=== PATIENT | male | born 1955 | race Caucasian/White ===

== ENCOUNTER → 2019-01-06 21:15 | Outpatient (CLI) | payer OTHER, SELFPAY ==
[2019-01-06 15:12] VITALS: BMI 25.5
[2019-01-06 21:25] LABS: Absolute Lymphocyte Count 2.32 X10^3/ul (0.83-4.51); Absolute Neutrophil Count 4.7 X10^3/uL (2.0-7.7); Basophil# 0.05 X10^3/uL; Basophil% 0.7 % (0-1); Eosinophil# 0.08 X10^3/uL; Eosinophils% 1.1 % (0-5); Hematocrit 43.8 % (40-54); Hemoglobin 14.8 g/dl (13.0-16.5); Lymphocyte # 2.32 X10^3/ul (4.0); Lymphocyte % 30.5 % (19-41); Mean Corp Hgb Conc 33.8 g/gl (32-36); Mean Corpuscular Volume 94.8 fL (80-94); Mean Platelet Vol. 9.4 fl (6.2-12.0); Monocyte# 0.48 X10^3/uL; Monocyte% 6.3 % (0-10); Neutrophil # 4.67 X10^3/uL (2.7-7.7); Neutrophil % 61.3 % (47-70); POSITIVE COUNT NO; POSITIVE DIFFERENTIAL NO; POSITIVE MORPHOLOGY NO; Platelet Count 267 K/mm3 (150-450); RBC Distribution Width CV 14.6 % (11.6-14.6); RBC Distribution Width SD 50.9 fl (35.1-43.9); Red Blood Count 4.62 M/mm3 (4.6-6.2); White Blood Count 7.6 K/mm3 (4.4-11.0)
[2019-01-06 21:54] LABS: ALB/GLOB Ratio 1.4 RATIO (0.9-2.4); AST(SGOT) 30 U/L (15-37); Alanine Aminotransfer ALT/SGPT 29 U/L (16-61); Albumin, Serum 4.2 g/dL (3.2-5.0); Alkaline Phosphatase 68 U/L (45-117); Anion Gap 5 (5-15); BUN 11 mg/dL (7-18); BUN/Creat Ratio 10.7 RATIO (10-20); Calcium,Total 8.8 mg/dL (8.5-10.1); Chloride 104 mmol/L (98-107); Cholesterol 170 mg/dL (200); Creatinine, Serum 1.03 mg/dL (0.70-1.30); EST Glomerular Filtration Rate 78 mL/min (>60); Est Glom Filt Rate - Afr Amer 94 mL/min (>60); Globulin 2.9 g/dL (2.2-4.2); Glucose 119 mg/dL (74-106); High Density Lipoprotein 61 mg/dL; PSA,Total - Annual Screen 0.95 ng/mL (0.00-4.00); Potassium 3.9 mmol/L (3.5-5.1); Protein, Total 7.1 g/dL (6.4-8.2); Sodium Level 139 mmol/L (136-145); Triglycerides 101 mg/dL; Very Low Density Lipoprotein 20 mg/dL (5-40)
== END ==
PROVIDERS: Referring Provider Nurse Practitioner; Visit Provider Nurse Practitioner
DX: I10 Essential (primary) hypertension (principal); E78.5 Hyperlipidemia, unspecified; R35.0 Frequency of micturition
CPT/HCPCS: 80053; 80061; 84153; 85025; G0103

== ENCOUNTER → 2020-08-13 22:05 | Outpatient (CLI) | payer OTHER, SELFPAY ==
[2020-08-13 16:49] VITALS: BMI 26.2
[2020-08-13 22:16] LABS: Absolute Lymphocyte Count 2.44 X10^3/uL (0.83-4.51); Absolute Neutrophil Count 5.3 X10^3/uL (2.0-7.7); Basophil# 0.08 X10^3/uL; Basophil% 0.9 % (0-1); Eosinophil# 0.16 X10^3/uL; Eosinophils% 1.9 % (0-5); Hematocrit 44.9 % (40-54); Hemoglobin 15.3 g/dL (13.0-16.5); Lymphocyte # 2.44 X10^3/ul (4.0); Lymphocyte % 28.3 % (19-41); Mean Corp Hgb Conc 34.1 g/dL (32-36); Mean Corpuscular Hgb 33.1 pg (27.0-32.0); Mean Corpuscular Volume 97.2 fL (80-94); Mean Platelet Vol. 9.9 fl (6.2-12.0); Monocyte# 0.67 X10^3/uL; Monocyte% 7.8 % (0-10); NRBC Flagged by Analyzer 0 % (0-5); Neutrophil # 5.25 X10^3/uL (2.7-7.7); Neutrophil % 60.8 % (47-70); Platelet Count 294 K/mm3 (150-450); RBC Distribution Width CV 13.4 % (11.6-14.6); RBC Distribution Width SD 47.9 fl (35.1-43.9); Red Blood Count 4.62 M/mm3 (4.6-6.2); White Blood Count 8.6 K/mm3 (4.4-11.0)
[2020-08-13 22:34] LABS: ALB/GLOB Ratio 1.4 RATIO (0.9-2.4); AST(SGOT) 23 U/L (15-37); Alanine Aminotransfer ALT/SGPT 39 U/L (16-61); Albumin, Serum 4.2 g/dL (3.2-5.0); Alkaline Phosphatase 91 U/L (45-117); Anion Gap 3 (5-15); BUN 12 mg/dL (7-18); BUN/Creat Ratio 11.4 RATIO (10-20); Chloride 106 mmol/L (98-107); Cholesterol 172 mg/dL (200); Creatinine, Serum 1.05 mg/dL (0.70-1.30); EST Glomerular Filtration Rate 75 mL/min (>60); Est Glom Filt Rate - Afr Amer 91 mL/min (>60); Globulin 2.9 g/dL (2.2-4.2); Glucose 91 mg/dL (74-106); High Density Lipoprotein 62 mg/dL; PSA,Total - Annual Screen 1.25 ng/mL (0.00-4.00); Potassium 4.4 mmol/L (3.5-5.1); Protein, Total 7.1 g/dL (6.4-8.2); Sodium Level 138 mmol/L (136-145); Triglycerides 151 mg/dL; Very Low Density Lipoprotein 30 mg/dL (5-40)
== END ==
PROVIDERS: PCP Nurse Practitioner; Referring Provider Nurse Practitioner; Visit Provider Nurse Practitioner
DX: I10 Essential (primary) hypertension (principal); E78.5 Hyperlipidemia, unspecified; R35.0 Frequency of micturition
CPT/HCPCS: 80053; 80061; 84153; 85025; G0103

== ENCOUNTER → 2021-09-22 21:26 | Outpatient (CLI) | payer MEDICARE, SELFPAY ==
[2021-09-22 22:03] LABS: Absolute Lymphocyte Count 2.66 X10^3/uL (0.83-4.51); Absolute Neutrophil Count 6.1 X10^3/uL (2.0-7.7); Basophil# 0.08 X10^3/uL; Basophil% 0.8 % (0-1); Eosinophil# 0.16 X10^3/uL; Eosinophils% 1.7 % (0-5); Hematocrit 44.5 % (40-54); Hemoglobin 15.4 g/dL (13.0-16.5); Lymphocyte # 2.66 X10^3/ul (0.83-4.51); Lymphocyte % 27.5 % (19-41); Mean Corp Hgb Conc 34.6 g/dL (32-36); Mean Corpuscular Hgb 32.6 pg (27.0-32.0); Mean Corpuscular Volume 94.1 fL (80-94); Mean Platelet Vol. 9.5 fl (6.2-12.0); Monocyte% 7.2 % (0-10); NRBC Flagged by Analyzer 0 % (0-5); Neutrophil # 6.07 X10^3/uL (2.7-7.7); Neutrophil % 62.6 % (47-70); Platelet Count 277 K/mm3 (150-450); RBC Distribution Width CV 13.3 % (11.6-14.6); RBC Distribution Width SD 46.5 fl (35.1-43.9); Red Blood Count 4.73 M/mm3 (4.6-6.2); White Blood Count 9.7 K/mm3 (4.4-11.0)
[2021-09-22 22:07] LABS: ALB/GLOB Ratio 1.4 RATIO (0.9-2.4); AST(SGOT) 19 U/L (15-37); Alanine Aminotransfer ALT/SGPT 36 U/L (16-61); Albumin, Serum 4.2 g/dL (3.2-5.0); Alkaline Phosphatase 82 U/L (45-117); Anion Gap 6 (5-15); BUN 15 mg/dL (7-18); Calcium,Total 9.2 mg/dL (8.5-10.1); Chloride 103 mmol/L (98-107); Cholesterol 169 mg/dL (200); Creatinine, Serum 0.94 mg/dL (0.70-1.30); EST Glomerular Filtration Rate 86 mL/min (>60); Est Glom Filt Rate - Afr Amer 104 mL/min (>60); Glucose 95 mg/dL (74-106); High Density Lipoprotein 54 mg/dL; PSA,Total - Annual Screen 1.48 ng/mL (0.00-4.00); Potassium 4.2 mmol/L (3.5-5.1); Protein, Total 7.2 g/dL (6.4-8.2); Sodium Level 137 mmol/L (136-145); Triglycerides 151 mg/dL; Very Low Density Lipoprotein 30 mg/dL (5-40)
== END ==
PROVIDERS: PCP Nurse Practitioner; Referring Provider Nurse Practitioner; Visit Provider Nurse Practitioner
DX: K21.9 Gastro-esophageal reflux disease without esophagitis (principal); I10 Essential (primary) hypertension; R35.0 Frequency of micturition
CPT/HCPCS: 80053; 80061; 84153; 85025; G0103

== ENCOUNTER → 2022-09-23 | Outpatient (CLI) | payer MEDICARE, SELFPAY ==
[2022-09-23 23:29] LABS: ALB/GLOB Ratio 1.4 RATIO (0.9-2.4); AST(SGOT) 20 U/L (15-37); Alanine Aminotransfer ALT/SGPT 29 U/L (16-61); Albumin, Serum 4.2 g/dL (3.2-5.0); Alkaline Phosphatase 86 U/L (45-117); Anion Gap 3 (5-15); BUN 17 mg/dL (7-18); BUN/Creat Ratio 18.2 RATIO (10-20); Calcium,Total 9.1 mg/dL (8.5-10.1); Chloride 103 mmol/L (98-107); Cholesterol 197 mg/dL (200); Creatinine, Serum 0.93 mg/dL (0.70-1.30); EST Glomerular Filtration Rate 86 mL/min (>60); Est Glom Filt Rate - Afr Amer 104 mL/min (>60); Globulin 2.9 g/dL (2.2-4.2); Glucose 95 mg/dL (74-106); High Density Lipoprotein 65 mg/dL; PSA,Total - Annual Screen 1.27 ng/mL (0.00-4.00); Potassium 4.4 mmol/L (3.5-5.1); Protein, Total 7.1 g/dL (6.4-8.2); Sodium Level 135 mmol/L (136-145); Triglycerides 134 mg/dL; Very Low Density Lipoprotein 27 mg/dL (5-40)
[2022-09-23 23:41] LABS: Absolute Lymphocyte Count 2.66 X10^3/uL (0.83-4.51); Absolute Neutrophil Count 5.2 X10^3/uL (2.0-7.7); Basophil# 0.08 X10^3/uL; Basophil% 0.9 % (0-1); Eosinophil# 0.28 X10^3/uL; Eosinophils% 3.1 % (0-5); Hematocrit 44.1 % (40-54); Hemoglobin 15.9 g/dL (13.0-16.5); Lymphocyte # 2.66 X10^3/ul (0.83-4.51); Lymphocyte % 29.4 % (19-41); Mean Corp Hgb Conc 36.1 g/dL (32-36); Mean Corpuscular Hgb 33.6 pg (27.0-32.0); Mean Corpuscular Volume 93.2 fL (80-94); Mean Platelet Vol. 10.4 fl (6.2-12.0); Monocyte# 0.77 X10^3/uL; Monocyte% 8.5 % (0-10); NRBC Flagged by Analyzer 0 % (0-5); Neutrophil # 5.21 X10^3/uL (2.7-7.7); Neutrophil % 57.7 % (47-70); Platelet Count 251 K/mm3 (150-450); RBC Distribution Width CV 13.3 % (11.6-14.6); RBC Distribution Width SD 46.2 fl (35.1-43.9); Red Blood Count 4.73 M/mm3 (4.6-6.2)
== END | disposition home or self-care (01) ==
PROVIDERS: PCP Nurse Practitioner; Visit Provider Nurse Practitioner
DX: I10 Essential (primary) hypertension (principal); R35.0 Frequency of micturition; K21.9 Gastro-esophageal reflux disease without esophagitis; E78.5 Hyperlipidemia, unspecified; Z12.5 Encounter for screening for malignant neoplasm of prostate
CPT/HCPCS: 80053; 80061; 84153; 85025; G0103

== ENCOUNTER → 2023-09-16 | Outpatient (CLI) | payer MEDICARE, SELFPAY ==
[2023-09-16 20:38] LABS: Absolute Neutrophil Count 5.2 X10^3/uL (2.0-7.7); Hematocrit 44.6 % (40-54); Lymphocyte # 2.66 X10^3/ul (0.83-4.51); Lymphocyte % 29.9 % (19-41); Mean Corp Hgb Conc 33.6 g/dL (32-36); Mean Corpuscular Hgb 32.4 pg (27.0-32.0); Mean Corpuscular Volume 96.3 fL (80-94); Mean Platelet Vol. 10.1 fl (6.2-12.0); Monocyte% 8.1 % (0-10); Neutrophil # 5.23 X10^3/uL (2.7-7.7); Neutrophil % 58.8 % (47-70); Platelet Count 281 K/mm3 (150-450); RBC Distribution Width CV 13.3 % (11.6-14.6); RBC Distribution Width SD 47.8 fl (35.1-43.9); Red Blood Count 4.63 M/mm3 (4.6-6.2); White Blood Count 8.9 K/mm3 (4.4-11.0)
[2023-09-16 20:39] LABS: Absolute Lymphocyte Count 2.66 X10^3/uL (0.83-4.51); Basophil# 0.09 X10^3/uL; Eosinophil# 0.18 X10^3/uL; Monocyte# 0.72 X10^3/uL; NRBC Flagged by Analyzer 0 % (0-5)
[2023-09-16 21:03] LABS: ALB/GLOB Ratio 1.3 RATIO (0.9-2.4); AST(SGOT) 24 U/L (15-37); Alanine Aminotransfer ALT/SGPT 35 U/L (16-61); Alkaline Phosphatase 78 U/L (45-117); Anion Gap 5 (5-15); BUN 15 mg/dL (7-18); BUN/Creat Ratio 13.9 RATIO (10-20); Calcium,Total 9.1 mg/dL (8.5-10.1); Chloride 105 mmol/L (98-107); Cholesterol 185 mg/dL (200); Creatinine, Serum 1.08 mg/dL (0.70-1.30); EST Glomerular Filtration Rate 72 mL/min (>60); Est Glom Filt Rate - Afr Amer 88 mL/min (>60); Globulin 3.1 g/dL (2.2-4.2); Glucose 91 mg/dL (74-106); High Density Lipoprotein 62 mg/dL; PSA,Total- Diagnostic 1.14 ng/mL (0.0-4.0); Potassium 4.5 mmol/L (3.5-5.1); Protein, Total 7.1 g/dL (6.4-8.2); Sodium Level 137 mmol/L (136-145); Triglycerides 156 mg/dL; Very Low Density Lipoprotein 31 mg/dL (5-40)
== END | disposition home or self-care (01) ==
PROVIDERS: PCP Nurse Practitioner; Visit Provider Nurse Practitioner
DX: R35.0 Frequency of micturition (principal); I10 Essential (primary) hypertension; K21.9 Gastro-esophageal reflux disease without esophagitis; E78.5 Hyperlipidemia, unspecified
CPT/HCPCS: 80053; 80061; 84153; 85025

== ENCOUNTER → 2024-09-08 | Outpatient (CLI) | payer MEDICARE, SELFPAY ==
[2024-09-08 21:33] LABS: Absolute Lymphocyte Count 2.75 X10^3/uL (0.83-4.51); Absolute Neutrophil Count 4.7 X10^3/uL (2.0-7.7); Basophil% 1.2 % (0-1); Eosinophil# 0.23 X10^3/uL; Eosinophils% 2.6 % (0-5); Hematocrit 43.2 % (40-54); Lymphocyte # 2.75 X10^3/ul (0.83-4.51); Lymphocyte % 31.7 % (19-41); Mean Corp Hgb Conc 34.7 g/dL (32-36); Mean Corpuscular Hgb 32.7 pg (27.0-32.0); Mean Corpuscular Volume 94.1 fL (80-94); Mean Platelet Vol. 9.3 fl (6.2-12.0); Monocyte# 0.86 X10^3/uL; Monocyte% 9.9 % (0-10); NRBC Flagged by Analyzer 0 % (0-5); Neutrophil # 4.71 X10^3/uL (2.7-7.7); Neutrophil % 54.3 % (47-70); Platelet Count 308 K/mm3 (150-450); RBC Distribution Width CV 13.3 % (11.6-14.6); RBC Distribution Width SD 45.9 fl (35.1-43.9); Red Blood Count 4.59 M/mm3 (4.6-6.2); White Blood Count 8.7 K/mm3 (4.4-11.0)
[2024-09-08 21:56] LABS: ALB/GLOB Ratio 1.5 RATIO (0.9-2.4); AST(SGOT) 15 U/L (15-37); Alanine Aminotransfer ALT/SGPT 31 U/L (16-61); Alkaline Phosphatase 78 U/L (45-117); Anion Gap 2 (5-15); BUN 10 mg/dL (7-18); Calcium,Total 9.3 mg/dL (8.5-10.1); Chloride 103 mmol/L (98-107); Cholesterol 176 mg/dL (200); EST Glomerular Filtration Rate 79 mL/min (>60); Est Glom Filt Rate - Afr Amer 95 mL/min (>60); Globulin 2.6 g/dL (2.2-4.2); Glucose 99 mg/dL (74-106); High Density Lipoprotein 57 mg/dL; PSA,Total - Annual Screen 2.33 ng/mL (0.00-4.00); Potassium 4.7 mmol/L (3.5-5.1); Protein, Total 6.6 g/dL (6.4-8.2); Sodium Level 136 mmol/L (136-145); Triglycerides 247 mg/dL; Very Low Density Lipoprotein 49 mg/dL (5-40)
== END | disposition home or self-care (01) ==
PROVIDERS: PCP Nurse Practitioner; Referring Provider Nurse Practitioner; Visit Provider Nurse Practitioner
DX: R35.0 Frequency of micturition (principal); I10 Essential (primary) hypertension; K21.9 Gastro-esophageal reflux disease without esophagitis; E78.5 Hyperlipidemia, unspecified; Z12.5 Encounter for screening for malignant neoplasm of prostate
CPT/HCPCS: 80053; 80061; 84153; 85025; G0103

== ENCOUNTER → 2025-09-10 | Outpatient (CLI) | payer MEDICARE, SELFPAY ==
--- OUTSIDE RECORDS SUMMARY | 2025-09-10 22:17 | XMS RPT_ITS | CCD ---
Author Organization [facility] Care Team Providers Care Quality Assurance Name Role Phone PROVIDER, UNKNOWN Attending Unavailable PROVIDER, UNKNOWN Referring Unavailable Greer Austin Primary [facility] Unavailable Greer Austin Referring Unavailable Greer Austin Attending Unavailable Greer Austin Primary [facility] Unavailable COBY MARIE Admitting Unavailable ALEX PLEITEZ Consulting Unavailable CAPRICE COLE Attending Unavailable Allergies Allergy Classification Reported Allergen(s) Allergy Type Date of Onset Reaction(s) Facility (2 sources) Angiotensin Converting Enzyme (Jonny) Inhibitors Allergy to substance 01-07-20 cough and tickle [facility] (2 sources) hydroCHLOROthiazide Drug Allergy 01-07-20 [facility] (2 sources) olmesartan Drug Allergy 01-07-20 19 [facility] (1 source) Angiotensin Converting Enzyme (Jonny) Inhibitors Drug allergy (disorder) 01-07-[address] [facility] (1 source) hydroCHLOROthiazide Drug Allergy 01-07-[address] [facility] (1 source) olmesartan Drug Allergy 01-07-[address] [facility] Medications Current Medications Medication Drug Class(es) Dates Sig (Normalized) Sig (Original) famotidine 10 mg oral tablet (2 sources) Histamine-2 Receptor Antagonist Start: 01-06-2019 take 1 tablet by mouth at bedtime Famotidine (Pepcid Ac) 10 mg tablet Active 10 MG PO AT BEDTIME January 05, 2019 11:00pm irbesartan 150 mg oral tablet (15 sources) Angiotensin 2 Receptor Charito Start: 09-16-2023 take 150 mg by mouth once daily Irbesartan Active 150 MG PO DAILY September 16, 2023 12:00am Start: 01-06-2019 End: 09-16-2023 take 75 mg by mouth once daily Irbesartan Discontinued 75 MG PO DAILY September 24, 2020 1:12pm Carlos 27th, 2021 5:26pm Completed/Discontinued Medications Medication Drug Class(es) Dates Sig (Normalized) Sig (Original) cefuroxime 500 mg oral tablet (2 sources) Cephalosporin Antibacterial Start: 03-27-2019 End: 06-28-2019 take 500 mg by mouth twice daily Cefuroxime Axetil Discontinued 500 MG PO TWICE A DAY March 26, 2019 11:00pm June 28, 2019 2:04pm losartan potassium 50 mg oral tablet (2 sources) Angiotensin 2 Receptor Charito Start: 01-06-2019 End: 06-28-2019 take 50 mg by mouth once daily Losartan Discontinued 50 MG PO DAILY January 05, 2019 11:00pm June 28, 2019 2:04pm sildenafil 20 mg oral tablet (2 sources) Phosphodiesterase 5 Inhibitor Start: 06-28-2019 End: 08-13-2020 Sildenafil (Pulm.Hypertensio n) Discontinued 20 MG PO ONCE 30 June 27, 2019 11:00pm August 13, 2020 4:54pm administer doses at least 4-6 hours apart Problems Problem Classification Problem Date Documented Date Episodic/Chronic Cardiac dysrhythmias (2 sources) Tachycardia, unspecified; Translations: [Tachycardia, unspecified] Onset: 12-01-2018 Episodic Disorders of lipid metabolism (2 sources) Hyperlipidemia; Translations: [Hyperlipidemia, unspecified] 01-07-2019 Chronic Disorders of teeth and jaw (1 source) Other specified disorders of teeth and supporting structures; Translations: [Odontalgia] Onset: 03-16-2025 Episodic Esophageal disorders (2 sources) Gastroesophageal reflux disease; Translations: [Gastro-esophageal reflux disease without esophagitis] 08-13-2020 Chronic Essential hypertension (4 sources) Essential (primary) hypertension; Translations: [Hypertensive disorder] Onset: 12-01-2018 08-13-2020 Chronic Genitourinary symptoms and ill-defined conditions (3 sources) Increased frequency of urination; Translations: [Frequency of micturition] Onset: 10-12-2024 09-22-2021 Episodic Immunizations and screening for infectious disease (2 sources) Needs influenza immunization; Translations: [Encounter for immunization] 06-28-2019 Episodic Infective arthritis and osteomyelitis (except that caused by tuberculosis or sexually transmitted disease) (1 source) Other acute osteomyelitis, unspecified site; Translations: [Acute osteomyelitis (HCC)] Onset: 03-16-2025 Chronic Influenza (2 sources) Influenza due to unidentified influenza virus with other respiratory manifestations; Translations: [Flu due to unidentified influenza virus w oth resp manifest] Onset: 12-01-2018 Episodic Other aftercare (2 sources) 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; Translations: [residential (current) use of aspirin] Onset: 12-01-2018 Episodic Other male genital disorders (2 sources) Male erectile dysfunction, unspecified; Translations: [Erectile dysfunction] 06-28-2019 Chronic Other upper respiratory infections (2 sources) Maxillary sinusitis; Translations: [Chronic maxillary sinusitis] 03-27-2019 Chronic Residual codes; unclassified (2 sources) Acquired absence of other specified parts of digestive tract; Translations: [Acquired absence of other specified parts of digestive tract] Onset: 12-01-2018 Episodic Substance-related disorders (3 sources) Nicotine dependence, unspecified, uncomplicated; Translations: [Nicotine dependence, unspecified, uncomplicated] Onset: 12-01-2018 Chronic Syncope (2 sources) Syncope and collapse; Translations: [Syncope and collapse] Onset: 12-01-2018 Episodic Results Test Name Value Interpretation Reference Range Facility CBC panel Auto (Bld)on 03-19 Erythrocyte distribution width (RBC) [Ratio] 13.2 % Normal 11.5-15.0 [facility] Comment on above: Order Comment: Speci men Type: BLOOD SPECIMEN Ordering Facility: [facility] [place] Address: [address] [place] [address] Performed By: #### 5 7021-8 #### [facility] CLIA [id number] [address] [place] Hematocrit (Bld) [Volume fraction] 38.1 % Low 39.0-51.0 [facility] Comment on above: Order Comment: Speci men Type: BLOOD SPECIMEN Ordering Facility: [facility] [place] Address: [address] [place] [address] Performed By: #### 5 7021-8 #### [facility] CLIA [id number] [address] [place] Hemoglobin (Bld) [Mass/Vol] 13.1 g/dL Normal 13.0-17.0 [facility] Comment on above: Order Comment: Speci men Type: BLOOD SPECIMEN Ordering Facility: [facility] [place] Address: [address] [place] [address] Performed By: #### 5 7021-8 #### [facility] CLIA [id number] [address] MCH (RBC) [Entitic mass] 32.3 pg Normal 26.0-34.0 [facility] Comment on above: Order Comment: Speci men Type: BLOOD SPECIMEN Ordering Facility: [facility] [place] Address: [address] [place] [address] Performed By: #### 5 7021-8 #### [facility] CLIA [id number] [address] [place] MCHC (RBC) [Mass/Vol] 34.4 g/dL Normal 30.5-36.0 [facility] Comment on above: Order Comment: Speci men Type: BLOOD SPECIMEN Ordering Facility: [facility] [place] Address: [address] [place] [address] Performed By: #### 5 7021-8 #### [facility] CLIA [id number] [address] MCV (RBC) [Entitic vol] 93.8 fL Normal 80.0-100.0 M [facility] Comment on above: Order Comment: Speci men Type: BLOOD SPECIMEN Ordering Facility: [facility] [place] Address: [address] [place] [address] Performed By: #### 5 7021-8 #### [facility] CLIA [id number] [address] [place] Nucleated RBC (Bld) [#/Vol] 10*3/uL Normal <0.01 [facility] Comment on above: Order Comment: Speci men Type: BLOOD SPECIMEN Ordering Facility: [facility] [place] Address: [address] [place] [address] Performed By: #### 5 7021-8 #### [facility] CLIA [id number] [address] [place] Platelet mean volume (Bld) [Entitic vol] 8.5 fL Low 9.0-12.7 [facility] Comment on above: Order Comment: Speci men Type: BLOOD SPECIMEN Ordering Facility: [facility] [place] Address: [address] [place] [address] Performed By: #### 5 7021-8 #### [facility] CLIA [id number] [address] Platelets (Bld) [#/Vol] 326 10*3/uL Normal 150-400 [facility] Comment on above: Order Comment: Speci men Type: BLOOD SPECIMEN Ordering Facility: [facility] [place] Address: [address] [place] [address] Performed By: #### 5 7021-8 #### [facility] CLIA [id number] [address] [place] RBC (Bld) [#/Vol] 4.06 10*6/uL Low 4.20-6.00 [facility] Comment on above: Order Comment: Speci men Type: BLOOD SPECIMEN Ordering Facility: [facility] [place] Address: [address] [place] [address] Performed By: #### 5 7021-8 #### [facility] CLIA [id number] [address] WBC (Bld) [#/Vol] 6.66 10*3/uL Normal 3.70-11.00 [facility] Comment on above: Order Comment: Speci men Type: BLOOD SPECIMEN Ordering Facility: [facility] [place] Address: [address] [place] [address] Performed By: #### 5 7021-8 #### [facility] CLIA [id number] [address] CNDSon 03-19-2025 CNDS HNO ID: [id number] Author: CAPRICE COLE DO Service: Hospital Medicine Author Type: Physician Type: Discharge Summary Filed: 03/25/2025 22:57 Note Text: DISCHARGE SUMMARY PATIENT NAME: Dionisio Orellana ADMISSION DATE: 03/16/2025 DISCHARGE DATE: 03/19/2025 ATTENDING PHYSICIAN: No att. providers found Code Status: Prior Highest Readmission Risk Score: 12 The 30 day readmissions risk score is derived from an internally validated risk model which evaluates patient level characteristics, utilization history, medication orders and lab results up until the day of discharge. Patients with a score of 39 or above are considered highest risk for readmission. Specific patient level drivers will be listed at the bottom of the summary. CONSULTING TEAMS DURING HOSPITALIZATION: Infectious Disease: Dr. Alex Pleitez REASON FOR HOSPITALIZATION: acute jaw osteomyelitis FINAL DIAGNOSIS: Active Hospital Problems Diagnosis POA Osteomyelitis, jaw acute Unknown Nicotine use disorder Unknown Hyponatremia Unknown Acute osteomyelitis of jaw Yes Hypertension Unknown Nicotine use Unknown Resolved Hospital Problems No resolved problems to display. OPERATIONS DURING HOSPITALIZATION: None PROCEDURES DURING HOSPITALIZATION: Access Placement: PICC Discharge Instructions: -Infectious diseases recommending Unasyn IV 3 g every 6 hours until April 27, 2025. -Also noted to have low sodium levels. -You are recommended fluid restriction of 1500 mL/day. -Repeat BMP in 1 week which can be ordered by your family doctor to check your sodium levels. -If your sodium levels remain low then your family doctor can refer you to a shoe lining fitter outpatient and order outpatient CT chest with smoking history for work up for hyponatremia -You had abnormal TSH level however free T4 was within normal limits. -Recheck Thyroid function test in one 4-6 weeks You had a left upper extremity swelling and left upper extremity ultrasound was done which showed negative study for DVT in the left upper extremity, positive study for superficial thrombophlebitis in the distal left basilic vein. -Use warm compresses for superficial thrombophlebitis for left upper extremity. -If your swelling does not get improved then contact your family doctor to have repeat left upper extremity ultrasound done as an outpatient. -Follow up blood culture results with your family doctor in 3-4 days of discharge -Need outpatient follow up with Pulmonary for pulmonary function test with history of smoking in 1-2 weeks -Follow-up with your family doctor within 1 week of discharge. -Follow-up with your oral surgeon within 1 week of discharge. -Follow-up with Dr. Alex Pleitez infectious disease within 1 week of discharge. -If you have any worsening or life-threatening symptoms then go to the nearest emergency room for further evaluation. HOSPITAL COURSE: Dionisio Orellana is a 69 year old male presented with past medical history of HTN presented with dental pain and was seen by a dentist in January and put on antibiotics, 7 day course of amoxicillin. He was then seen by an Maxillofacial Surgery on 02/26/25 and had to remove portion of the bone. His path report came back for acute osteomyelitis and he was referred to outpatient infectious disease. He states he cannot get until next week and he has been having more severe pain and tenderness along the jawline, R-sided. So he came to the emergency room for eval and treatment. ED spoke with the ID they recommended Zosyn and vancomycin and a PICC line placement for long-term antibiotics also the ED staff spoke with dentistry no need for any surgeries at this point he can follow-up as an outpatient. CT of facial bone showed Broad linear lucency along the oral surface of the body and parasymphyseal mandible on the right with areas of cortical break along the anterior and posterior margins, which may reflect sequelae of chronic infectious/inflammato ry process. Asymmetric ill-defined induration/obscuratio n of the adjacent soft tissue planes extending along the inferior margin of the mandible into the submental region. No discrete superimposed sizable subperiosteal abscess or organized collection. Admitted for, Osteomyelitis, jaw acute -CRP: 0.4. Sed rate: in process. Blood cultures: in process. Lactate:0.7. -blood cultures No growth 5 days -PICC line placed on March 19, 2025. -Infectious diseases recommending Unasyn IV 3 g every 6 hours until April 27, 2025. -Follow-up with your oral surgeon within 1 week of discharge. -Follow-up with Dr. Alex Pleitez infectious disease within 1 week of discharge. -Called Dr. Talley twice on 03/19/25 however, did not answer her phone -discussed with his outpatient oral surgeon Dr. Talley on 03/20/25 and hospital course update given. Patient has OP appointment with Dr. Talley on April 04. Hyponatremia -131 -IVF x 1 day -had abnormal TSH level how (more content not included)... Normal [facility] CONSULT PROGon 03-19-2025 CONSULT PROG HNO ID: [id number] Author: JAISON BUSBY [facility] Service: Pharmacy Author Type: Pharmacist Type: Consult Progress Note Filed: 03/19/2025 10:12 Note Text: PHARMACY VANCOMYCIN DOSING NOTE Patient Name: Dionisio Orellana Admission Date: 03/16/2025 Date of Consult: 03/19/2025 Time of Consult: 10:11 AM RECOMMENDATIONS/PLAN: Pharmacy consulted for vancomycin dosing for Dionisio Orellana, a 69 year old male. Vancomycin therapy has been discontinued. Vancomycin level(s) have been discontinued: Yes. The pharmacy vancomycin dosing service will sign off. Thank you for allowing us to participate in this patient's care. Please contact pharmacy if there are questions. Jaison Busby [facility] CONSULT PROG HNO ID: [id number] Author: ALEX PLEITEZ MD Service: Infectious Disease Author Type: Physician Type: Consult Progress Note Filed: 03/20/2025 20:52 Note Text: INFECTIOUS DISEASE PROGRESS NOTE Patient Name: Dionisio Orellana INTERVAL HISTORY: No fevers over the weekend. No new complaints. BCx NGTD Wants to be discharged Patient Active Hospital Problem List: Osteomyelitis, jaw acute Date Noted: 03/16/2025 Hyponatremia Date Noted: 03/16/2025 Acute osteomyelitis of jaw Date Noted: 03/16/2025 Hypertension Date Noted: 03/16/2025 Nicotine use Date Noted: 03/16/2025 Nicotine use disorder Date Noted: 03/17/2025 ASSESSMENT: Osteomyelitis, jaw acute Hyponatremia Hypertension Nicotine use PLAN: Obtain any OP cultures available Continue unasyn Stop vancomycin BCx x 2 Biopsy path from oral surgeon rev and positive for abscess. Discussed w Dr Talley, no cultures available to follow Obtain PICC CoPAT on chart. >30 min NUNO Complex antimicrobial therapy counseling and treatment. Rationale for switching antibiotics discussed. Education provided regarding long-term antimicrobial therapy as well as side effects. Discussed sensitivities with microbiology department and antimicrobial stewardship pharmacist that will influence antimicrobial therapy and the success of treatment for this infection. I have reviewed and interpreted all lab test imaging studies and documentations from other healthcare providers I am monitoring antibiotics for side effects and toxicity MEDICATIONS: reviewed. Current Facility-Administered Medications Medication Dose Route Frequency NaCl 0.9% iv flush bag 20 mL INTRAVENOUS PRN docusate sodium 100 mg cap(s) (COLACE) 100 mg ORAL BID PRN acetaminophen 650 mg tab(s) (TYLENOL) 650 mg ORAL q 6 H PRN morphine 2 mg injection 2 mg INTRAVENOUS q 4 H PRN oxyCODONE-acetaminoph en 5-325 mg 2 tablet (PERCOCET) 2 tablet ORAL q 6 H PRN valsartan 80 mg tab(s) (DIOVAN) 80 mg ORAL DAILY lidocaine (PF) 10 mg/mL (1 %) 10-100 mg injection (XYLOCAINE) 1-10 mL INTRADERMAL DIRECTED PRN nicotine 21 mg/24 hr 1 patch (NICODERM) 1 patch TRANSDERMAL DAILY And nicotine -- REMOVE patch OTHER DAILY And nicotine - verify patch OTHER q 8 H lactobacillus rhamnosus 10 billion cell (CULTURELLE) capsule 1 capsule ORAL DAILY ampicillin-sulbactam iv piggyback 3 g in NaCl 0.9% 100 mL Vial-Bag (UNASYN) 3 g INTRAVENOUS q 6 H lidocaine (PF) 10 mg/mL (1 %) 10-100 mg injection (XYLOCAINE) 1-10 mL INTRADERMAL DIRECTED PRN calcium carbonate 500 mg chewable tab(s) (TUMS) 500 mg ORAL TID PRN PHYSICAL EXAM: Vital signs: BP 152/89 Pulse 66 Temp 36.7 ?C (98.1 ?F) (Oral) Resp 18 Ht 177.8 cm (5' 10") Wt 81.7 kg (180 lb 0.1 oz) SpO2 99% BMI 25.83 kg/m? Temp (24hrs), Av.7 ?C (98.1 ?F), Min:36.5 ?C (97.7 ?F), Max:36.8 ?C (98.2 ?F) General: alert, oriented, NAD Lungs: bilaterally clear to auscultation Heart: regular rate and rhythm Abdomen: soft, non tender, non distended, BS+ Extremities: no edema No rashes No joint inflammation Neck supple Lines ok No CVAT Lines, Drains, and Airways Line Duration Peripheral 03/18/25 1625 [facility] Left Forearm 20 Gauge <1 day Labs: Recent Labs 03/19/25 0537 03/18/25 1300 03/18/25 0530 03/17/25 0526 03/16/25 1402 03/16/25 1139 WBC 6.66 -- 6.27 7.85 -- 8.37 HB 13.1 -- 12.4* 12.9* -- 14.0 PLT 326 -- 294 294 -- 310 NA 131* -- 134* 131* -- 130* K 4.7 -- 4.3 4.1 -- 4.7 CO2 24 -- 26 23 -- 23 BUN 12 -- 12 9 -- 14 CREAT 0.77 -- 0.89 0.86 -- 0.75 AST 19 -- 15 -- -- 18 ALT 21 -- 16 -- -- 19 TBILI 0.2 -- 0.2 -- -- 0.3 ALKPHOS 94 -- 69 -- -- 81 WSR -- -- -- -- -- 15 CRP -- -- -- -- -- 0.4 LACT -- -- -- -- 0.7 -- VANCORA -- 11.4 -- -- -- -- Microbiology data: reviewed Imaging data: reviewed Alex Pleitez MD Pager: Date of service: 03/19/2025 Time of service: 10:09 AM This note is not final until Authenticated by responsible provider. Normal [facility] Comprehensive metabolic 2000 panelon 03-19-2025 Albumin [Mass/Vol] 4.3 g/dL Normal 3.9-4.9 [facility] Comment on above: Order Comment: Speci men Type: BLOOD SPECIMEN Ordering Facility: [facility] [place] Address: [address] [place] [address] Performed By: #### 2 4323-8, 6-3 #### [facility] CLIA [id number] [address] STATES OF [facility] ALP [Catalytic activity/Vol] 94 U/L Normal 38-113 [facility] Comment on above: Order Comment: Speci men Type: BLOOD SPECIMEN Ordering Facility: [facility] [place] Address: [address] [place] [address] Performed By: #### 2 4323-8, 6-3 #### [facility] CLIA [id number] [address] [place] ALT [Catalytic activity/Vol] 21 U/L Normal 10-54 [facility] Comment on above: Order Comment: Speci men Type: BLOOD SPECIMEN Ordering Facility: [facility] [place] Address: [address] [place] [address] Performed By: #### 2 4323-8, 6-3 #### [facility] CLIA [id number] [address] [place] [address] [place] Anion gap [Moles/Vol] 9 mmol/L Normal 8-15 [facility] Comment on above: Order Comment: Speci men Type: BLOOD SPECIMEN Ordering Facility: [facility] [place] Address: [address] [place] [address] Performed By: #### 2 4323-8, 6-3 #### [facility] CLIA [id number] [address] [place] [address] [place] AST [Catalytic activity/Vol] 19 U/L Normal 14-40 [facility] Comment on above: Order Comment: Speci men Type: BLOOD SPECIMEN Ordering Facility: [facility] [place] Address: [address] [place] [address] Performed By: #### 2 4323-8, 3015-3 #### [facility] CLIA [id number] [address] [place] [address] [place] Bilirubin [Mass/Vol] 0.2 mg/dL Normal 0.2-1.3 [facility] Comment on above: Order Comment: Speci men Type: BLOOD SPECIMEN Ordering Facility: [facility] [place] Address: [address] [place] [address] Performed By: #### 2 4323-8, 6-3 #### [facility] CLIA [id number] [address] [place] Calcium [Mass/Vol] 9.2 mg/dL Normal 8.5-10.2 [facility] Comment on above: Order Comment: Speci men Type: BLOOD SPECIMEN Ordering Facility: [facility] [place] Address: [address] [place] [address] Performed By: #### 2 4323-8, 3016-3 #### [facility] CLIA [id number] [address] [place] [address] [place] Chloride [Moles/Vol] 98 mmol/L Normal 98-107 [facility] Comment on above: Order Comment: Speci men Type: BLOOD SPECIMEN Ordering Facility: [facility] [place] Address: [address] [place] [address] Performed By: #### 2 4323-8, 3016-3 #### [facility] CLIA [id number] [address] [place] [address] [place] CO2 [Moles/Vol] 24 mmol/L Normal 22-30 [facility] Comment on above: Order Comment: Maira chacon Type: BLOOD SPECIMEN Ordering Facility: [facility] [place] Address: [address] [place] [address] Performed By: #### 2 4323-8, 3016-3 #### [facility] CLIA [id number] [address] [place] Creatinine [Mass/Vol] 0.77 mg/dL Normal 0.73-1.22 [facility] Comment on above: Order Comment: Maira chacon Type: BLOOD SPECIMEN Ordering Facility: [facility] [place] Address: [address] [place] [address] Performed By: #### 2 4323-8, 3016-3 #### [facility] CLIA [id number] [address] Creatinine and Glomerular filtration rate.predicted panel (S/P/Bld) 97 mL/min/1.73m??? Normal >=60 [facility] Comment on above: Order Comment: Maira chacon Type: BLOOD SPECIMEN Ordering Facility: [facility] [place] Address: [address] [place] [address] Result Comment: Amy mated Glomerular Filtration Rate (eGFR) is calculated using the 2020 CKD-EPI creatinine equation. This equation utilizes serum creatinine, sex, and age as parameters. The creatinine assay has traceable calibration to isotope dilution-mass spectrometry. Refer to KDIGO guidelines for clinical interpretation. In patients with unstable renal function, e.g. those with acute kidney injury, the eGFR may not accurately reflect actual GFR. Performed By: #### 2 4323-8, 3016-3 #### [facility] CLIA [id number] [address] STATES OF [facility] Glucose [Mass/Vol] 84 mg/dL Normal 74-99 [facility] Comment on above: Order Comment: Maira chacon Type: BLOOD SPECIMEN Ordering Facility: [facility] [place] Address: [address] [place] [address] Result Comment: The [place] Diabetes Association (ADA) provides guidance for cutoff values for fasting glucose and random glucose. The ADA defines fasting as no caloric intake for at least 8 hours. Fasting plasma glucose results between 100 to 125 mg/dL indicate increased risk for diabetes (prediabetes). Fasting plasma glucose results greater than or equal to 126 mg/dL meet the criteria for diagnosis of diabetes. In the absence of unequivocal hyperglycemia, results should be confirmed by repeat testing. In a patient with classic symptoms of hyperglycemia or hyperglycemic crisis, random plasma glucose results greater than or equal to 200 mg/dL meet the criteria for diagnosis of diabetes. Reference: Standards of Medical Care in Diabetes 2016, [place] [employer]. Diabetes Care. 2016.39(Suppl 1). Performed By: #### 2 4323-8, 6-3 #### [facility] CLIA [id number] [address] [place] [address] [place] Potassium [Moles/Vol] 4.7 mmol/L Normal 3.7-5.1 [facility] Comment on above: Order Comment: Maira cahcon Type: BLOOD SPECIMEN Ordering Facility: [facility] [place] Address: [address] [place] [address] Performed By: #### 2 4323-8, 6-3 #### [facility] CLIA [id number] [address] [place] [address] [place] Protein [Mass/Vol] 7.0 g/dL Normal 6.3-8.0 [facility] Comment on above: Order Comment: Maira chacon Type: BLOOD SPECIMEN Ordering Facility: [facility] [place] Address: [address] [place] [address] Performed By: #### 2 4323-8, 6-3 #### [facility] CLIA [id number] [address] [place] [address] [place] Sodium [Moles/Vol] 131 mmol/L Low 136-144 [facility] Comment on above: Order Comment: Maira chacon Type: BLOOD SPECIMEN Ordering Facility: [facility] [place] Address: [address] [place] [address] Performed By: #### 2 4323-8, 6-3 #### [facility] CLIA [id number] [address] STATES [facility] Urea nitrogen [Mass/Vol] 12 mg/dL Normal 9-24 [facility] Comment on above: Order Comment: Speci men Type: BLOOD SPECIMEN Ordering Facility: [facility] [place] Address: [address] [place] [address] Performed By: #### 2 4323-8, 3016-3 #### [facility] CLIA [id number] [address] [place] CBC panel Auto (Bld)on 03-18 Erythrocyte distribution width (RBC) [Ratio] 13.4 % Normal 11.5-15.0 [facility] Comment on above: Order Comment: Speci men Type: BLOOD SPECIMENOrdering Facility: [facility] [place] Address: [address] [place] [address] Performed By: #### 5 8410-2 ####[facility] [id number] [address] [place] Hematocrit (Bld) [Volume fraction] 36.6 % Low 39.0-51.0 [facility] Comment on above: Order Comment: Speci men Type: BLOOD SPECIMENOrdering Facility: [facility] [place] Address: [address] [place] [address] Performed By: #### 5 8410-2 ####[facility] [id number] [address] [place] [facility] Hemoglobin (Bld) [Mass/Vol] 12.4 g/dL Low 13.0-17.0 [facility] Comment on above: Order Comment: Speci men Type: BLOOD SPECIMENOrdering Facility: [facility] [place] Address: [address] [place] [address] Performed By: #### 5 8410-2 ####[facility] [id number] [address] MCH (RBC) [Entitic mass] 32.3 pg Normal 26.0-34.0 [facility] Comment on above: Order Comment: Speci men Type: BLOOD SPECIMENOrdering Facility: [facility] [place] Address: [address] [place] [address] Performed By: #### 5 8410-2 ####[facility] [id number] [address] STATES [facility] MCHC (RBC) [Mass/Vol] 33.9 g/dL Normal 30.5-36.0 [facility] Comment on above: Order Comment: Speci men Type: BLOOD SPECIMENOrdering Facility: [facility] [place] Address: [address] [place] [address] Performed By: #### 5 8410-2 ####[facility] [id number] [address] [place] MCV (RBC) [Entitic vol] 95.3 fL Normal 80.0-100.0 M [facility] Comment on above: Order Comment: Speci men Type: BLOOD SPECIMENOrdering Facility: [facility] [place] Address: [address] [place] [address] Performed By: #### 5 8410-2 ####[facility] [id number] [address] Nucleated RBC (Bld) [#/Vol] 10*3/uL Normal <0.01 [facility] Comment on above: Order Comment: Speci men Type: BLOOD SPECIMENOrdering Facility: [facility] [place] Address: [address] [place] [address] Performed By: #### 5 8410-2 ####[facility] [id number] [address] [place] Platelet mean volume (Bld) [Entitic vol] 8.6 fL Low 9.0-12.7 [facility] Comment on above: Order Comment: Speci men Type: BLOOD SPECIMENOrdering Facility: [facility] [place] Address: [address] [place] [address] Performed By: #### 5 8410-2 ####[facility] [id number] [address] Platelets (Bld) [#/Vol] 294 10*3/uL Normal 150-400 [facility] Comment on above: Order Comment: Speci men Type: BLOOD SPECIMENOrdering Facility: [facility] [place] Address: [address] [place], [place] [address] [id number] Performed By: #### 5 8410-2 ####[facility] [id number] [place] [id number] [facility] [place] RBC (Bld) [#/Vol] 3.84 10*6/uL Low 4.20-6.00 [facility] Comment on above: Order Comment: Speci men Type: BLOOD SPECIMENOrdering Facility: [facility] [place] Address: [address] [place] [address] Performed By: #### 5 8410-2 ####[facility] [id number] [place] [id number] [facility] [place] WBC (Bld) [#/Vol] 6.27 10*3/uL Normal 3.70-11.00 [facility] Comment on above: Order Comment: Speci men Type: BLOOD SPECIMENOrdering Facility: [facility] [place] Address: [address] [place] [address] Performed By: #### 5 8410-2 ####[facility] [id number] [address] CONSULT PROGon 03-18-2025 CONSULT PROG HNO ID: [id number] Author: EDGAR CHOWDHURY RPh Service: Pharmacy Author Type: Pharmacist Type: Consult Progress Note Filed: 03/18/2025 13:28 Note Text: PHARMACY VANCOMYCIN DOSING NOTE Patient Name: Dionisio Orellana Admission Date: 03/16/2025 Date of Consult: 03/18/2025 Time of Consult: 1:24 PM Indication: Bone and joint infection Goal Range: 15-20 mcg/mL RECOMMENDATIONS/PLAN: Pharmacy consulted for vancomycin dosing for Dionisio Orellana, a 69 year old male. 1. Patient is currently ordered Vancomycin 1.25 g IV q12h. Today is day 3 of therapy. 2. The most recent vancomycin level was 11.4 mcg/mL drawn at 1300 on 03/18/25. This is a 11.5 hour level on the 3rd day of therapy. 3. Will increase vancomycin to 1.5 g with a dosing interval of q12h. 4. The next vancomycin level will be ordered for 03/20 unless clinically indicated sooner. (Pharmacy will order) We will follow patient renal function, vancomycin levels and doses with you during the course of therapy. Additional recommendations will appear in follow up notes. If you have any questions, please contact pharmacy at [phone]. Age: [age] year old Allergies: ALLERGIES No Known Allergies Last 3 Encounter Wt Readings: Date: Wt: 03/16/2025 81.7 kg (180 lb 0.1 oz) 12/04/2022 85 kg (187 lb 6.3 oz) Last 1 Encounter Ht Readings: Date: Ht: 03/16/2025 177.8 cm (5' 10") CrCl: 81 mL/min Temp (24hrs), Av.7 ?C (98 ?F), Min:36.4 ?C (97.5 ?F), Max:36.9 ?C (98.4 ?F) - Current Temp: 36.7 ?C (98.1 ?F) Labs BUN (mg/dL) Date Value 03/18/2025 12 03/17/2025 9 03/16/2025 14 Creatinine (mg/dL) Date Value 03/18/2025 0.89 03/17/2025 0.86 03/16/2025 0.75 WBC (k/uL) Date Value 03/18/2025 6.27 03/17/2025 7.85 03/16/2025 8.37 Vancomycin Levels: Vancomycin (ug/mL) Date/Time Value 03/18/2025 1300 11.4 Edgar Chowdhury [facility] Normal [facility] Comprehensive metabolic 2000 panelon 03-18-2025 Albumin [Mass/Vol] 3.7 g/dL Low 3.9-4.9 [facility] Comment on above: Order Comment: Maira chacon Type: BLOOD SPECIMEN Ordering Facility: [facility] [place] Address: [address] [place] [address] Performed By: #### 2 4323-8, 3016-3 #### [facility] CLIA [id number] [address] [place] [address] [place] ALP [Catalytic activity/Vol] 69 U/L Normal 38-113 [facility] Comment on above: Order Comment: Maira chacon Type: BLOOD SPECIMEN Ordering Facility: [facility] [place] Address: [address] [facility] [address] Performed By: #### 2 4323-8, 3016-3 #### [facility] CLIA [id number] [address] [place] [address] [place] ALT [Catalytic activity/Vol] 16 U/L Normal 10-54 [facility] Comment on above: Order Comment: Speci men Type: BLOOD SPECIMEN Ordering Facility: [facility] [place] Address: [facility] [place] [address] Performed By: #### 2 4323-8, 3016-3 #### [facility] CLIA [id number] [address] [place] [address] [place] Anion gap [Moles/Vol] 7 mmol/L Low 8-15 [facility] Comment on above: Order Comment: Speci men Type: BLOOD SPECIMEN Ordering Facility: [facility] [place] Address: [address] [place] [address] Performed By: #### 2 4323-8, 6-3 #### [facility] CLIA [id number] [address] [place] [address] [place] AST [Catalytic activity/Vol] 15 U/L Normal 14-40 [facility] Comment on above: Order Comment: Speci men Type: BLOOD SPECIMEN Ordering Facility: [facility] [place] Address: [address] [place] [address] Performed By: #### 2 4323-8, 3016-3 #### [facility] CLIA [id number] [address] [place] [address] [place] Bilirubin [Mass/Vol] 0.2 mg/dL Normal 0.2-1.3 [facility] Comment on above: Order Comment: Speci men Type: BLOOD SPECIMEN Ordering Facility: [facility] [place] Address: [address] [place] [address] Performed By: #### 2 4323-8, 3016-3 #### [facility] CLIA [id number] [address] [place] Calcium [Mass/Vol] 8.7 mg/dL Normal 8.5-10.2 [facility] Comment on above: Order Comment: Speci men Type: BLOOD SPECIMEN Ordering Facility: [facility] [place] Address: [address] [place] [address] Performed By: #### 2 4323-8, 3016-3 #### [facility] CLIA [id number] [address] [place] [address] [place] Chloride [Moles/Vol] 101 mmol/L Normal 98-107 [facility] Comment on above: Order Comment: Speci men Type: BLOOD SPECIMEN Ordering Facility: [facility] [place] Address: [address] [place] [address] Performed By: #### 2 4323-8, 3016-3 #### [facility] CLIA [id number] [address] [place] [address] [place] CO2 [Moles/Vol] 26 mmol/L Normal 22-30 [facility] Comment on above: Order Comment: Speci men Type: BLOOD SPECIMEN Ordering Facility: [facility] [place] Address: [address] [place] [address] Performed By: #### 2 4323-8, 3016-3 #### [facility] CLIA [id number] [address] [place] [address] [place] Creatinine [Mass/Vol] 0.89 mg/dL Normal 0.73-1.22 [facility] Comment on above: Order Comment: Speci men Type: BLOOD SPECIMEN Ordering Facility: [facility] [place] Address: [address] [place] [address] Performed By: #### 2 4323-8, 3016-3 #### [facility] CLIA [id number] [address] Creatinine and Glomerular filtration rate.predicted panel (S/P/Bld) 93 mL/min/1.73m??? Normal >=60 [facility] Comment on above: Order Comment: Speci men Type: BLOOD SPECIMEN Ordering Facility: [facility] [place] Address: [address] [place] [address] Result Comment: Amy mated Glomerular Filtration Rate (eGFR) is calculated using the 2020 CKD-EPI creatinine equation. This equation utilizes serum creatinine, sex, and age as parameters. The creatinine assay has traceable calibration to isotope dilution-mass spectrometry. Refer to KDIGO guidelines for clinical interpretation. In patients with unstable renal function, e.g. those with acute kidney injury, the eGFR may not accurately reflect actual GFR. Performed By: #### 2 4323-8, 3016-3 #### [facility] CLIA [id number] [address] [place] [address] [place] Glucose [Mass/Vol] 91 mg/dL Normal 74-99 [facility] Comment on above: Order Comment: Maira chacon Type: BLOOD SPECIMEN Ordering Facility: [facility] [place] Address: [address] [place] [address] Result Comment: The [place] Diabetes Association (ADA) provides guidance for cutoff values for fasting glucose and random glucose. The ADA defines fasting as no caloric intake for at least 8 hours. Fasting plasma glucose results between 100 to 125 mg/dL indicate increased risk for diabetes (prediabetes). Fasting plasma glucose results greater than or equal to 126 mg/dL meet the criteria for diagnosis of diabetes. In the absence of unequivocal hyperglycemia, results should be confirmed by repeat testing. In a patient with classic symptoms of hyperglycemia or hyperglycemic crisis, random plasma glucose results greater than or equal to 200 mg/dL meet the criteria for diagnosis of diabetes. Reference: Standards of Medical Care in Diabetes 2016, [place] [employer]. Diabetes Care. 2016.39(Suppl 1). Performed By: #### 2 4323-8, 6-3 #### [facility] CLIA [id number] [address] [place] [address] [place] Potassium [Moles/Vol] 4.3 mmol/L Normal 3.7-5.1 [facility] Comment on above: Order Comment: Maira chacon Type: BLOOD SPECIMEN Ordering Facility: [facility] [place] Address: [address] [place] [address] Performed By: #### 2 4323-8, 3016-3 #### [facility] CLIA [id number] [address] [place] [address] [place] Protein [Mass/Vol] 6.2 g/dL Low 6.3-8.0 [facility] Comment on above: Order Comment: Maira chacon Type: BLOOD SPECIMEN Ordering Facility: [facility] [place] Address: [address] [place] [address] Performed By: #### 2 4323-8, 3016-3 #### [facility] CLIA [id number] [address] STATES [facility] Sodium [Moles/Vol] 134 mmol/L Low 136-144 [facility] Comment on above: Order Comment: Speci men Type: BLOOD SPECIMEN Ordering Facility: [facility] [place] Address: [address] [place] [address] Performed By: #### 2 4323-8, 3016-3 #### [facility] CLIA [id number] [address] [place] Urea nitrogen [Mass/Vol] 12 mg/dL Normal 9-24 [facility] Comment on above: Order Comment: Speci men Type: BLOOD SPECIMEN Ordering Facility: [facility] [place] Address: [address] [place] [address] Performed By: #### 2 4323-8, 6-3 #### [facility] CLIA [id number] [address] [place] NURSING PROGon 03-18-2025 NURSING PROG HNO ID: [id number] Author: MICHELLE SHIPMAN RN Service: PICC Team Author Type: Registered Nurse Type: Nursing Progress Note Filed: 03/18/2025 14:48 Note Text: PICC/VASCULAR ACCESS PROGRESS NOTE SERVICE DATE: 03/18/2025 SERVICE TIME: 1440 Blood cultures neg x 1 day. Per secure chat with Dr Cole this afternoon, PICC to be placed when BC neg x 2 days so not to be placed today. SIGNATURE: Michelle Shipman RN PATIENT NAME: Dionisio Grosste DATE: March 18, 2025 TIME: 2:41 PM PAGER/CONTACT #: [phone] Normal [facility] Osmolality SerPlon 5 Osmolality [Osmolality] 278 mosm/kg Normal 275-300 [facility] Comment on above: Order Comment: Speci men Type: BLOOD SPECIMEN Ordering Facility: [facility] [place] Address: [address] [place] [address] Performed By: #### 2 4323-8, 3016-3 #### [facility] CLIA [id number] [address] [place] [address] [place] Osmolality Uron 03-18-2025 Osmolality (U) [Osmolality] 273 mosm/kg Normal 50-1200 [facility] Comment on above: Order Comment: Speci men Type: URINE SPECIMENOrdering Facility: [facility] [place] Address: [address] [place] [address] Performed By: #### 2 695-5 ####[facility] [id number] [place] [address] [place] Sodium ?Tm Ur-sCncon 025 Sodium Unsp time (U) [Moles/Vol] 61 mmol/L Normal 14-216 [facility] Comment on above: Order Comment: Speci men Type: BLOOD SPECIMEN Ordering Facility: [facility] [place] Address: [address] [place] [address] Performed By: #### 5 7021-8 #### [facility] CLIA [id number] [address] [place] [address] [place] T4 Free SerPl-mCncon 025 Free T4 [Mass/Vol] 1.3 ng/dL Normal 0.9-1.7 [facility] Comment on above: Order Comment: Speci men Type: BLOOD SPECIMEN Ordering Facility: [facility] [place] Address: [address] [place] [address] Performed By: #### 2 4323-8, 3016-3 #### [facility] CLIA [id number] [address] [place] [address] [place] TSH SerPl-aCncon 03-18-2025 TSH Qn 6.360 m[IU]/L High 0.270-4.200 [facility] Comment on above: Order Comment: Speci men Type: BLOOD SPECIMEN Ordering Facility: [facility] [place] Address: [address] [place] [address] Performed By: #### 2 4323-8, 3016-3 #### [facility] CLIA [id number] [address] [place] [address] [place] US DVT UPPER LTon 03-18-2025 US DVT UPPER LT * * *Final Report* * * DATE OF EXAM: Mar 18 2025 10:21PM BARBARA 1003 - US DVT UPPER LT / PROCEDURE REASON: Arm deep vein thrombosis (DVT), new symptoms * * * * Physician Interpretation * * * * EXAMINATION: LEFT UPPER EXTREMITY DEEP VENOUS ULTRASOUND WITH DOPPLER IMAGING CLINICAL HISTORY: Arm swelling TECHNIQUE: Grayscale with compression maneuvers where accessible, color and spectral Doppler of the left internal jugular, subclavian, and axillary veins was performed. Grayscale with compression maneuvers of the left brachial, basilic and cephalic veins was also performed. The contralateral internal jugular and distal subclavian veins were imaged for comparison. Images were obtained and stored in a permanent archive and interpreted remotely. MQ: [email or web address] COMPARISON: None RESULT: LEFT UPPER EXTREMITY DEEP VEINS Internal Jugular vein: Normal compression, normal spontaneous flow. Subclavian vein: Normal, spontaneous flow. Axillary vein: Normal compression, normal spontaneous flow. Brachial vein: Normal compression SUPERFICIAL VEINS Basilic vein: Abnormal compression distally due to acute superficial thrombophlebitis, normal proximally. Cephalic vein: Normal compression. RIGHT UPPER EXTREMITY (FOR COMPARISON) DEEP VEINS Internal Jugular and Distal Subclavian veins: Normal compression, normal spontaneous flow. IMPRESSION: Negative study for DVT in the left upper extremity. Positive study for superficial thrombophlebitis in the distal left basilic vein. Soccer Ball Assembler: MELINDA Transcribe Date/Time: Mar 19 2025 5:25A Dictated by : MARCI LOJA MD This examination was interpreted and the report reviewed and electronically signed by: MARCI LOJA MD on Mar 19 2025 5:26AM EST [id number] Normal [facility] Vancomycin [place] SerPl-mCncon 03-18-2025 Vancomycin random [Mass/Vol] 11.4 ug/mL Normal 10.0-20.0 [facility] Comment on above: Order Comment: Speci men Type: BLOOD SPECIMEN Ordering Facility: [facility] [place] Address: [address] [place] [address] Result Comment: Refe rence ranges and high/low indicator flags are provided as general guidelines only. The treating physician must determine appropriate target levels/dosing based on the specific clinical situation. Performed By: #### 5 7021-8 #### [facility] CLIA [id number] [address] [place] [address] [place] Basic metabolic 2000 panelon 03-17-2025 Anion gap [Moles/Vol] 8 mmol/L Normal 8-15 [facility] Comment on above: Order Comment: Speci men Type: BLOOD SPECIMENOrdering Facility: [facility] [place] Address: [address] [place] [address] Performed By: #### 2 4321-2 ####[facility] [id number] [place] [address] [place] Calcium [Mass/Vol] 8.7 mg/dL Normal 8.5-10.2 [facility] Comment on above: Order Comment: Speci men Type: BLOOD SPECIMENOrdering Facility: [facility] [place] Address: [address] [place] [address] Performed By: #### 2 4321-2 ####[facility] [id number] [place] [address] [place] Chloride [Moles/Vol] 100 mmol/L Normal 98-107 [facility] Comment on above: Order Comment: Speci men Type: BLOOD SPECIMENOrdering Facility: [facility] [place] Address: [address] [place] [address] Performed By: #### 2 4321-2 ####[facility] [id number] [place] [address] [place] CO2 [Moles/Vol] 23 mmol/L Normal 22-30 [facility] Comment on above: Order Comment: Speci men Type: BLOOD SPECIMENOrdering Facility: [facility] [place] Address: [address] [place] [address] Performed By: #### 2 4321-2 ####[facility]ORATORYCLIA [id number] [place] [address] [place] Creatinine [Mass/Vol] 0.86 mg/dL Normal 0.73-1.22 [facility] Comment on above: Order Comment: Speci men Type: BLOOD SPECIMENOrdering Facility: [facility] [place] Address: [address] [place] [address] Performed By: #### 2 4321-2 ####[facility]ORATORYCLIA [id number] [place] [address] [place] Creatinine and Glomerular filtration rate.predicted panel (S/P/Bld) 94 mL/min/1.73m??? Normal >=60 [facility] Comment on above: Order Comment: Maira chacon Type: BLOOD SPECIMENOrdering Facility: [facility] [place] Address: [address] [place] [address] Result Comment: Amy farias Glomerular Filtration Rate (eGFR) is calculated using the 2020 CKD-EPI creatinine equation. This equation utilizes serum creatinine, sex, and age as parameters. The creatinine assay has traceable calibration to isotope dilution-mass spectrometry. Refer to KDIGO guidelines for clinical interpretation. In patients with unstable renal function, e.g. those with acute kidney injury, the eGFR may not accurately reflect actual GFR. Performed By: #### 2 4321-2 ####[facility]ATORYCLIA [id number] [place] [id number] [place] Glucose [Mass/Vol] 116 mg/dL High 74-99 [facility] Comment on above: Order Comment: Maira chacon Type: BLOOD SPECIMENOrdering Facility: [facility] [place] Address: [address] [place] [address] Result Comment: The [place] Diabetes [employer] (ADA) provides guidance for cutoff values for fasting glucose and random glucose. The ADA defines fasting as no caloric intake for at least 8 hours. Fasting plasma glucose results between 100 to 125 mg/dL indicate increased risk for diabetes (prediabetes). Fasting plasma glucose results greater than or equal to 126 mg/dL meet the criteria for diagnosis of diabetes. In the absence of unequivocal hyperglycemia, results should be confirmed by repeat testing. In a patient with classic symptoms of hyperglycemia or hyperglycemic crisis, random plasma glucose results greater than or equal to 200 mg/dL meet the criteria for diagnosis of diabetes. Reference: Standards of Medical Care in Diabetes 2016, [place] [employer]. Diabetes Care. 2016.39(Suppl 1). Performed By: #### 2 4321-2 ####[facility]ORATORYCLIA [id number] [place] [address] [place] Potassium [Moles/Vol] 4.1 mmol/L Normal 3.7-5.1 [facility] Comment on above: Order Comment: Speci men Type: BLOOD SPECIMENOrdering Facility: [facility] [place] Address: [address] [place] [address] Performed By: #### 2 4321-2 ####[facility]ORATORYCLIA [id number] [address] Sodium [Moles/Vol] 131 mmol/L Low 136-144 [facility] Comment on above: Order Comment: Speci men Type: BLOOD SPECIMENOrdering Facility: [facility] [place] Address: [address] [place] [address] Performed By: #### 2 4321-2 ####[facility]ATORYCLIA [id number] [address] [place] Urea nitrogen [Mass/Vol] 9 mg/dL Normal 9-24 [facility] Comment on above: Order Comment: Speci men Type: BLOOD SPECIMENOrdering Facility: [facility] [place] Address: [address] [place] [address] Performed By: #### 2 4321-2 ####[facility]ORATORYCLIA [id number] [address] CBC panel Auto (Bld)on 03-17 Erythrocyte distribution width (RBC) [Ratio] 13.2 % Normal 11.5-15.0 [facility] Comment on above: Order Comment: Speci men Type: BLOOD SPECIMEN Ordering Facility: [facility] [place] Address: [address] [place] [address] Performed By: #### 2 4323-8, 3016-3 #### [facility] CLIA [id number] [address] [place] Hematocrit (Bld) [Volume fraction] 36.3 % Low 39.0-51.0 [facility] Comment on above: Order Comment: Speci men Type: BLOOD SPECIMEN Ordering Facility: [facility] [place] Address: [address] [place] [address] Performed By: #### 2 4323-8, 3016-3 #### [facility] CLIA [id number] [address] [place] Hemoglobin (Bld) [Mass/Vol] 12.9 g/dL Low 13.0-17.0 [facility] Comment on above: Order Comment: Speci men Type: BLOOD SPECIMEN Ordering Facility: [facility] [place] Address: [address] [place] [address] Performed By: #### 2 4323-8, 6-3 #### [facility] CLIA [id number] [address] MCH (RBC) [Entitic mass] 32.8 pg Normal 26.0-34.0 [facility] Comment on above: Order Comment: Speci men Type: BLOOD SPECIMEN Ordering Facility: [facility] [place] Address: [address] [place] [address] Performed By: #### 2 4323-8, 3015-3 #### [facility] CLIA [id number] [address] MCHC (RBC) [Mass/Vol] 35.5 g/dL Normal 30.5-36.0 [facility] Comment on above: Order Comment: Speci men Type: BLOOD SPECIMEN Ordering Facility: [facility] [place] Address: [address] [place] [address] Performed By: #### 2 432-8, 3015-3 #### [facility] CLIA [id number] [address] MCV (RBC) [Entitic vol] 92.4 fL Normal 80.0-100.0 M [facility] Comment on above: Order Comment: Speci men Type: BLOOD SPECIMEN Ordering Facility: [facility] [place] Address: [address] [place] [address] Performed By: #### 2 4323-8, 6-3 #### [facility] CLIA [id number] [address] Nucleated RBC (Bld) [#/Vol] 10*3/uL Normal <0.01 [facility] Comment on above: Order Comment: Speci men Type: BLOOD SPECIMEN Ordering Facility: [facility] [place] Address: [address] [place] [address] Performed By: #### 2 4323-8, 3016-3 #### [facility] CLIA [id number] [address] [place] [address] [place] Platelet mean volume (Bld) [Entitic vol] 8.6 fL Low 9.0-12.7 [facility] Comment on above: Order Comment: Speci men Type: BLOOD SPECIMEN Ordering Facility: [facility] [place] Address: [address] [place] [address] Performed By: #### 2 4323-8, 3016-3 #### [facility] CLIA [id number] [address] [place] [address] [place] Platelets (Bld) [#/Vol] 294 10*3/uL Normal 150-400 [facility] Comment on above: Order Comment: Speci men Type: BLOOD SPECIMEN Ordering Facility: [facility] [place] Address: [address] [place] [address] Performed By: #### 2 4323-8, 3016-3 #### [facility] CLIA [id number] [address] [place] [address] [place] RBC (Bld) [#/Vol] 3.93 10*6/uL Low 4.20-6.00 [facility] Comment on above: Order Comment: Speci men Type: BLOOD SPECIMEN Ordering Facility: [facility] [place] Address: [address] [place] [address] Performed By: #### 2 4323-8, 3016-3 #### [facility] CLIA [id number] [address] [place] [address] [place] WBC (Bld) [#/Vol] 7.85 10*3/uL Normal 3.70-11.00 [facility] Comment on above: Order Comment: Speci men Type: BLOOD SPECIMEN Ordering Facility: [facility] [place] Address: [address] [place] [address] Performed By: #### 2 4323-8, 3016-3 #### [facility] CLIA [id number] [address] NURSING PROGon 03-17-2025 NURSING PROG HNO ID: [id number] Author: MICHELLE SHIPMAN RN Service: PICC Team Author Type: Registered Nurse Type: Nursing Progress Note Filed: 03/17/2025 11:07 Note Text: PICC/VASCULAR ACCESS PROGRESS NOTE SERVICE DATE: 03/17/2025 SERVICE TIME: 1100 PICC order received. BC pending. Per Dr. Cole, wait for BC results prior to placing PICC. Vascular Access Team will continue to follow. SIGNATURE: Michelle Shipman RN PATIENT NAME: Dionisio Orellana DATE: March 17, 2025 TIME: 11:00 AM PAGER/CONTACT #: [phone] [facility] NUTRITIONon 03-17-2025 NUTRITION HNO ID: [id number] Author: ANA HERNANDEZ RD Service: Nutrition Therapy Author Type: Registered Dietitian Type: Nutrition Filed: 03/17/2025 12:56 Note Text: NUTRITION THERAPY SCREEN NOTE SERVICE DATE: 03/17/2025 SERVICE TIME: Start Time: 0945 Care Plan: Continue current diet Monitor and Evaluation: Meet greater than 75% of estimated needs Physician progress notes and labs reviewed. HPI: Hyponatremia, HTN. Osteomyelitis/abscess jaw. Nicotine use Intake History: Nutrition Intake Prior to Admission: Greater than 75% estimated energy needs greater than or equal to 1 month Current Nutrition Intake: Greater than 75% estimated energy needs (Breakfast with 100% po intake of meal this morning) Pleasant and talkative. Takes probiotic at home. Generally eats well, tolerating current diet texture. Diet Orders (From admission, onward) Start Ordered 03/16/25 1745 DIET FOOD CONSISTENCY CONTROLLED START NOW Question: Food Consistency Answer: DENTAL SOFT 03/16/25 1737 Anthropometrics: Height: 177.8 cm (5' 10") Weight: 81.7 kg (180 lb 0.1 oz) Usual Weight: 84.8 kg (187 lb) 12/04/22. Pt reports UBW of 174lbs. No weight history to review in [facility] over the past year Weight change percentage over time: Denies any significant weight changes Lines, Drains, and Airways None MNT Billing: $ Initial Assessment: 2 units Time Spent (mins): 30 SIGNATURE: Ana Hernandez RD PATIENT NAME: Dionisio Orellana DATE: March 17, 2025 TIME: 12:53 PM [facility] ALLIED HEALTHon 03-16-2025 ALLIED HEALTH HNO ID: [id number] Author: ANA CROOK TECHNOLOGIST Service: Radiology Author Type: Technologist Type: Allied Health Filed: 03/16/2025 13:49 Note Text: Radiology Service Progress Note DATE OF SERVICE: March 16, 2025 TIME: 1:49 PM PATIENT IDENTITY VERIFICATION COMPLETED USING TWO (2) STANDARD IDENTIFIERS: Name and Date of confirmed by patient verbally and Name and Date of confirmed by identification band. FALL SCREENING: Has the patient had 2 falls in the last year or 1 fall with injury or currently using an Ambulatory Assistive Device (Walker, Cane, Wheelchair, Crutches, etc.)? Emergency Room Patient: Screened in ED PATIENT GENDER DATA: Assigned male at PATIENT RELEVANT IMPLANT DATA REVIEWED: Yes PATIENT PRESENTS WITH AN IMPLANTABLE OR ATTACHED ROUTE DELIVERY DRIVER: No ALLERGIES: Reviewed and unchanged CONTRAST ALLERGY: NO. EXAM: CT -CONTRAST INDUCED NEPHROPATHY RISK FACTORS: Patient age > 60 years CREATININE: Creatinine Date Value Ref Range Status 03/16/2025 0.75 0.73 - 1.22 mg/dL Final 12/04/2022 1.05 0.73 - 1.22 mg/dL Final Estimated Glomerular Filtration Rate Date Value Ref Range Status 03/16/2025 98 >=60 mL/min/1.73m? Final Comment: Estimated Glomerular Filtration Rate (eGFR) is calculated using the 2020 CKD-EPI creatinine equation. This equation utilizes serum creatinine, sex, and age as parameters. The creatinine assay has traceable calibration to isotope dilution-mass spectrometry. Refer to KDIGO guidelines for clinical interpretation. In patients with unstable renal function, e.g. those with acute kidney injury, the eGFR may not accurately reflect actual GFR. P.O.C.T. RESULTS: POC done: Yes, See Lab Tab March 16, 2025 TREATMENT: N/A PERIPHERAL IV DATA: Ambulatory: A peripheral IV was started in the Left antecubital site with a Angio cath: 20 gauge. RADIOLOGY DEPARTMENT: CT; Exam(s) Completed: Face/Mandible SIGNATURE: TECHNOLOGIST Reji PATIENT NAME: Dionisio Orellana DATE: March 16, 2025 TIME: 1:49 PM [facility] Bacteria Bld Culton 03-16-20 25 Bacteria identified Cx Nom (Bld) CULTURE, BLOOD: No growth 5 days GRAM STAIN: This blood culture had less than the recommended 8 ml per bottle, which could decrease the sensitivity of the test. Normal [facility] Comment on above: Performed By: #### 6 00-7 ####[facility] LABCLIA [id number] [place] [address] [place] CBC W Auto Differential pane l (Bld)on 03-16-2025 Basophils (Bld) [#/Vol] 0.06 10*3/uL Normal <0.11 [facility] Comment on above: Order Comment: Speci men Type: BLOOD SPECIMEN Ordering Facility: [facility] [place] Address: [address] [place] [address] Performed By: #### 5 7021-8 #### [facility] CLIA [id number] [address] [place] Basophils/100 WBC (Bld) 0.7 % Normal [facility] Comment on above: Order Comment: Speci men Type: BLOOD SPECIMEN Ordering Facility: [facility] [place] Address: [address] [place] [address] Performed By: #### 5 7021-8 #### [facility] CLIA [id number] [address] [place] [facility] Differential cell count method Nom (Bld) Auto Normal [facility] Comment on above: Order Comment: Speci men Type: BLOOD SPECIMEN Ordering Facility: [facility] [place] Address: [address] [place] [address] Performed By: #### 5 7021-8 #### [facility] CLIA [id number] [address] [place] Eosinophils (Bld) [#/Vol] 0.09 10*3/uL Normal <0.46 [facility] Comment on above: Order Comment: Speci men Type: BLOOD SPECIMEN Ordering Facility: [facility] [place] Address: [address] [place] [address] Performed By: #### 5 7021-8 #### [facility] CLIA [id number] [address] [place] [address] [place] Eosinophils/100 WBC (Bld) 1.1 % Normal [facility] Comment on above: Order Comment: Speci men Type: BLOOD SPECIMEN Ordering Facility: [facility] [place] Address: [facility] [place] [address] Performed By: #### 5 7021-8 #### [facility] CLIA [id number] [address] [place] Erythrocyte distribution width (RBC) [Ratio] 13.2 % Normal 11.5-15.0 [facility] Comment on above: Order Comment: Speci men Type: BLOOD SPECIMEN Ordering Facility: [facility] [place] Address: [address] [place] [address] Performed By: #### 5 7021-8 #### [facility] CLIA [id number] [address] [place] Hematocrit (Bld) [Volume fraction] 39.6 % Normal 39.0-51.0 [facility] Comment on above: Order Comment: Speci men Type: BLOOD SPECIMEN Ordering Facility: [facility] [place] Address: [address] [place] [address] Performed By: #### 5 7021-8 #### [facility] CLIA [id number] [address] [place] [address] [place] Hemoglobin (Bld) [Mass/Vol] 14.0 g/dL Normal 13.0-17.0 [facility] Comment on above: Order Comment: Speci men Type: BLOOD SPECIMEN Ordering Facility: [facility] [place] Address: [address] [place] [address] Performed By: #### 5 7021-8 #### [facility] CLIA [id number] [address] [place] Immature granulocytes (Bld) [#/Vol] 0.05 10*3/uL Normal <0.10 [facility] Comment on above: Order Comment: Speci men Type: BLOOD SPECIMEN Ordering Facility: [facility] [place] Address: [address] [place] [address] Performed By: #### 5 7021-8 #### [facility] CLIA [id number] [address] [place] Immature granulocytes/100 WBC (Bld) 0.6 % Normal [facility] Comment on above: Order Comment: Speci men Type: BLOOD SPECIMEN Ordering Facility: [facility] [place] Address: [address] [place] [address] Performed By: #### 5 7021-8 #### [facility] CLIA [id number] [address] Lymphocytes (Bld) [#/Vol] 1.70 10*3/uL Normal 1.00-4.00 [facility] Comment on above: Order Comment: Speci men Type: BLOOD SPECIMEN Ordering Facility: [facility] [place] Address: [address] [place] [address] Performed By: #### 5 7021-8 #### [facility] CLIA [id number] [address] Lymphocytes/100 WBC (Bld) 20.3 % Normal [facility] Comment on above: Order Comment: Speci men Type: BLOOD SPECIMEN Ordering Facility: [facility] [place] Address: [address] [place] [address] Performed By: #### 5 7021-8 #### [facility] CLIA [id number] [address] MCH (RBC) [Entitic mass] 32.4 pg Normal 26.0-34.0 [facility] Comment on above: Order Comment: Speci men Type: BLOOD SPECIMEN Ordering Facility: [facility] [place] Address: [address] [place] [address] Performed By: #### 5 7021-8 #### [facility] CLIA [id number] [address] MCHC (RBC) [Mass/Vol] 35.4 g/dL Normal 30.5-36.0 [facility] Comment on above: Order Comment: Speci men Type: BLOOD SPECIMEN Ordering Facility: [facility] [place] Address: [address] [place] [address] Performed By: #### 5 7021-8 #### [facility] CLIA [id number] [address] [place] MCV (RBC) [Entitic vol] 91.7 fL Normal 80.0-100.0 [facility] Comment on above: Order Comment: Speci men Type: BLOOD SPECIMEN Ordering Facility: [facility] [place] Address: [address] [place] [address] Performed By: #### 5 7021-8 #### [facility] CLIA [id number] [address] [place] Monocytes (Bld) [#/Vol] 0.73 10*3/uL Normal <0.87 [facility] Comment on above: Order Comment: Speci men Type: BLOOD SPECIMEN Ordering Facility: [facility] [place] Address: [address] [place] [address] Performed By: #### 5 7021-8 #### [facility] CLIA [id number] [address] Monocytes/100 WBC (Bld) 8.7 % Normal [facility] Comment on above: Order Comment: Speci men Type: BLOOD SPECIMEN Ordering Facility: [facility] [place] Address: [address] [place] [address] Performed By: #### 5 7021-8 #### [facility] CLIA [id number] [address] Neutrophils (Bld) [#/Vol] 5.74 10*3/uL Normal 1.45-7.50 [facility] Comment on above: Order Comment: Speci men Type: BLOOD SPECIMEN Ordering Facility: [facility] [place] Address: [address] [place] [address] Performed By: #### 5 7021-8 #### [facility] CLIA [id number] [address] [place] Neutrophils/100 WBC (Bld) 68.6 % Normal [facility] Comment on above: Order Comment: Speci men Type: BLOOD SPECIMEN Ordering Facility: [facility] [place] Address: [address] [place] [address] Performed By: #### 5 7021-8 #### [facility] CLIA [id number] [address] [place] [address] [place] Nucleated RBC (Bld) [#/Vol] 10*3/uL Normal <0.01 [facility] Comment on above: Order Comment: Speci men Type: BLOOD SPECIMEN Ordering Facility: [facility] [place] Address: [address] [place] [address] Performed By: #### 5 7021-8 #### [facility] CLIA [id number] [address] [place] [address] [place] Nucleated RBC/100 WBC (Bld) [Ratio] 0.0 /100 WBC Normal [facility] Comment on above: Order Comment: Speci men Type: BLOOD SPECIMEN Ordering Facility: [facility] [place] Address: [address] [place] [address] Performed By: #### 5 7021-8 #### [facility] CLIA [id number] [address] [place] [address] [place] Platelet mean volume (Bld) [Entitic vol] 8.5 fL Low 9.0-12.7 [facility] Comment on above: Order Comment: Speci men Type: BLOOD SPECIMEN Ordering Facility: [facility] [place] Address: [address] [place] [address] Performed By: #### 5 7021-8 #### [facility] CLIA [id number] [address] [place] [address] [place] Platelets (Bld) [#/Vol] 310 10*3/uL Normal 150-400 [facility] Comment on above: Order Comment: Speci men Type: BLOOD SPECIMEN Ordering Facility: [facility] [place] Address: [address] [place] [address] Performed By: #### 5 7021-8 #### [facility] CLIA [id number] [address] [place] [address] [place] RBC (Bld) [#/Vol] 4.32 10*6/uL Normal 4.20-6.00 [facility] Comment on above: Order Comment: Speci men Type: BLOOD SPECIMEN Ordering Facility: [facility] [place] Address: [address] [place] [address] Performed By: #### 5 7021-8 #### [facility] CLIA [id number] [address] [place] [address] [place] WBC (Bld) [#/Vol] 8.37 10*3/uL Normal 3.70-11.00 [facility] Comment on above: Order Comment: Speci men Type: BLOOD SPECIMEN Ordering Facility: [facility] [place] Address: [address] [place] [address] Performed By: #### 5 7021-8 #### [facility] CLIA [id number] [address] [place] [address] [facility] [place] CONSULTon 03-16-2025 CONSULT HNO ID: [id number] Author: ALEX PLEITEZ MD Service: Infectious Disease Author Type: Physician Type: Consults Filed: 03/17/2025 06:26 Note Text: INFECTIOUS DISEASE INITIAL CONSULT REASON FOR CONSULT: OM/abscess jaw Subjective Patient is seen at the request of ED ANABELLA Mead. My final recommendations will be communicated back to the requesting physician by way of copy of this note or shared electronic medical record. HPI: Dionisio Orellana who is a 69 year old male who presents with dental pain and was seen by a dentist in January and put on antibiotics, 7 day course of amoxicillin. He was then seen by an Maxillofacial Surgery on 02/26/25 and had to remove portion of the bone. His path report came back for acute osteomyelitis and he was referred to outpatient infectious disease. He states he cannot get until next week and he has been having more severe pain and tenderness along the jawline, R-sided. So he came to the emergency room for eval and treatment. ED spoke with the ID they recommended Zosyn and vancomycin and a PICC line placement for long-term antibiotics also the ED staff spoke with dentistry no need for any surgeries at this point he can follow-up as an outpatient. Patient denies any fever/chills, no oral drainage, change in taste, denies nay difficulty breathing/managing secretions. No wound noted on exam. Denies any difficulty eating, reports adequate oral intake. CMP; glucose:112, Na: 130, Cl: 97. CBC; WNL. CRP: 0.4. Sed rate: in process. Blood cultures: in process. Lactate:0.7. CT facial bones: Broad linear lucency along the oral surface of the body and parasymphyseal mandible on the right with areas of cortical break along the anterior and posterior margins, which may reflect sequelae of chronic infectious/inflammato ry process. Asymmetric ill-defined induration/obscuratio n of the adjacent soft tissue planes extending along the inferior margin of the mandible into the submental region. No discretesuperimposed sizable subperiosteal abscess or organized collection. History reviewed. No pertinent past medical history. No past surgical history on file. Social History Tobacco Use Smoking status: Every Day Current packs/day: 1.00 Average packs/day: 1 pack/day for 40.0 years (40.0 ttl pk-yrs) Types: Cigarettes Smokeless tobacco: Never Vaping Use Vaping status: Never Used Substance Use Topics Alcohol use: Not Currently Drug use: Never No family history on file. There is no immunization history on file for this patient. Current Facility-Administered Medications Medication Dose Route Frequency iv contrast (radiology procedure) INTRAVENOUS DIRECTED PRN piperacillin-tazobact am iv piggyback 3.375 g in dextrose (iso-osmotic) 50 mL (ZOSYN) 3.375 g INTRAVENOUS q 6 H vancomycin iv piggyback 1.25 g in D5W 250 mL (VANCOCIN) 0.015 g/kg/dose INTRAVENOUS q 12 HR vancomycin dosing and monitoring per pharmacy OTHER As Directed NaCl 0.9% iv flush bag 20 mL INTRAVENOUS PRN docusate sodium 100 mg cap(s) (COLACE) 100 mg ORAL BID PRN acetaminophen 650 mg tab(s) (TYLENOL) 650 mg ORAL q 6 H PRN morphine 2 mg injection 2 mg INTRAVENOUS q 4 H PRN oxyCODONE-acetaminoph en 5-325 mg 2 tablet (PERCOCET) 2 tablet ORAL q 6 H PRN NaCl 0.9% iv infusion 75 mL/hr INTRAVENOUS CONTINUOUS valsartan 80 mg tab(s) (DIOVAN) 80 mg ORAL DAILY lidocaine (PF) 10 mg/mL (1 %) 10-100 mg injection (XYLOCAINE) 1-10 mL INTRADERMAL DIRECTED PRN nicotine 21 mg/24 hr 1 patch (NICODERM) 1 patch TRANSDERMAL DAILY And nicotine -- REMOVE patch OTHER DAILY And nicotine - verify patch OTHER q 8 H lactobacillus rhamnosus 10 billion cell (CULTURELLE) capsule 1 capsule ORAL DAILY ALLERGIES No Known Allergies REVIEW OF SYSTEMS: ROS checked in details x 10 systems and is negative except as noted in the HPI. All qs answered. Objective PHYSICAL EXAM: Temp (24hrs), Av.6 ?C (97.8 ?F), Min:36.3 ?C (97.3 ?F), Max:36.9 ?C (98.4 ?F) BP 155/87 Pulse 68 Temp 36.5 ?C (97.7 ?F) (Oral) Resp 16 Ht 177.8 cm (5' 10") Wt 81.7 kg (180 lb 0.1 oz) SpO2 99% BMI 25.83 kg/m? GENERAL APPEARANCE: Alert, NAD SKIN: No rashes NECK: Supple BACK: no CVAT. LUNGS: Clear HEART: Regular rate/rhythm, normal heart sounds, and no murmurs. ABDOMEN: Soft, non tender, no palpable masses, normal bowel sounds. EXTREMITIES: No edema or tenderness: NEURO: Awake, alert DATA: Diagnostic tests reviewed for today's visit: Labs: Recent Labs 03/17/25 0526 03/16/25 1139 WBC 7.85 8.37 HB 12.9* 14.0 HCT 36.3* 39.6 PLT 294 310 NA -- 130* K -- 4.7 CHLOR -- 97* CO2 -- 23 BUN -- 14 CREAT -- 0.75 UA: No results found for: "PH", "SPGR", "UGLUC", "UBILI", "UKET", "UHB", "UPROT", "UROBIL", "UWBC", SSA WSR: Lab Results Component Value Date WSR 15 03/16/2025 Impression/Recommenda tions Osteomyelitis, jaw acute Hyponatremia Hypertension Nicotine use PLAN: Obtain any OP cul (more content not included)... [facility] CONSULT PROGon 03-16-2025 CONSULT PROG HNO ID: [id number] Author: MISBAH DIAMOND RPh Service: Pharmacy Author Type: Pharmacist Type: Consult Progress Note Filed: 03/16/2025 13:51 Note Text: PHARMACY VANCOMYCIN DOSING NOTE Patient Name: Dionisio Orellana Admission Date: 03/16/2025 Date of Consult: 03/16/2025 Time of Consult: 1:48 PM Indication: Bone and joint infection Goal Range: 15-20 mcg/mL RECOMMENDATIONS/PLAN: Pharmacy consulted for vancomycin dosing for Dionisio Orellana, a 69 year old male. 1. Patient is currently ordered Vancomycin 1.25 g IV q12h. Today is day 1 of therapy. 2. No vancomycin level has been drawn for this dosing regimen. 3. The present dose of vancomycin is the recommended dosage for this patient at this time. Continue therapy as prescribed. 4. The next vancomycin level will be ordered for 03/18/25 unless clinically indicated sooner. (Pharmacy will order) We will follow patient renal function, vancomycin levels and doses with you during the course of therapy. Additional recommendations will appear in follow up notes. If you have any questions, please contact Pharmacy at [phone]. Age: [age] year old Allergies: ALLERGIES No Known Allergies Last 3 Encounter Wt Readings: Date: Wt: 03/16/2025 81.6 kg (180 lb) 12/04/2022 85 kg (187 lb 6.3 oz) Last 1 Encounter Ht Readings: Date: Ht: 12/04/2022 180.3 cm (5' 11") CrCl: 99 mL/min Temp (24hrs), Av.5 ?C (97.7 ?F), Min:36.5 ?C (97.7 ?F), Max:36.5 ?C (97.7 ?F) - Current Temp: 36.5 ?C (97.7 ?F) Labs BUN (mg/dL) Date Value 03/16/2025 14 12/04/2022 11 Creatinine (mg/dL) Date Value 03/16/2025 0.75 12/04/2022 1.05 WBC (k/uL) Date Value 03/16/2025 8.37 12/04/2022 6.24 Vancomycin Levels: No results found for: DONAVON Diamond, [facility] Normal [facility] CRP SerPl-mCncon 03-16-2025 CRP [Mass/Vol] 0.4 mg/dL Normal <0.9 [facility] Comment on above: Order Comment: Speci men Type: BLOOD SPECIMEN Ordering Facility: [facility] [place] Address: [address] [place] [address] Performed By: #### 2 4323-8, 3016-3 #### [facility] CLIA [id number] [address] [place] [address] [place] FACIAL BONE W IVCONon CT FACIAL BONE W IVCON * * *Final Report * * * DATE OF EXAM: Mar 16 2025 2:01PM [facility] [place] FACIAL BONE W IVCON / PROCEDURE REASON: Maxillofacial pain * * * * Physician Interpretation * * * * EXAMINATION: CT FACIAL BONE W IVCON HISTORY: Maxillofacial pain TECHNIQUE: CT facial bones following IV administration of 100 cc Omnipaque 350. M: [id number] CT Dose-Length Product (DLP): 221 mGy*cm CT Dose Reduction Employed: Automated exposure control(AEC) and iterative recon COMPARISON: None. RESULT: Dentition: Broad linear lucency along the oral surface of the body and parasymphyseal mandible on the right with areas of cortical break along the anterior and posterior margins, which may reflect sequelae of chronic infectious/inflammato ry process. Asymmetric ill-defined induration/obscuratio n of the adjacent soft tissue planes extending along the inferior margin of the mandible into the submental region. No discrete superimposed sizable subperiosteal abscess or organized collection. Facial bones: No acute fracture. Soft tissues: Imaged soft tissues are within normal limits. Orbits: Orbital rims are maintained. Soft tissues of the orbits are normal. Paranasal sinuses, middle ear cavities, mastoids: Small mucosal polyps in each maxillary antrum. Clear middle ear cavities and mastoid air cells. Other: Temporomandibular joints are maintained. Imaged upper cervical spine is unremarkable. No radiopaque foreign body identified. IMPRESSION: Broad linear lucency along the oral surface of the body and parasymphyseal mandible on the right with areas of cortical break along the anterior and posterior margins, which may reflect sequelae of chronic infectious/inflammato ry process. Asymmetric ill-defined induration/obscuratio n of the adjacent soft tissue planes extending along the inferior margin of the mandible into the submental region. No discrete superimposed sizable subperiosteal abscess or organized collection. Soccer Ball Assembler: MELINDA Transcribe Date/Time: Mar 16 2025 2:02P Dictated by : DEBRA HA MD This examination was interpreted and the report reviewed and electronically signed by: DEBRA HA MD on Mar 16 2025 2:11PM EST [id number] Normal [facility] Comprehensive metabolic 2000 panelon 03-16-2025 Albumin [Mass/Vol] 4.3 g/dL Normal 3.9-4.9 [facility] Comment on above: Order Comment: Speci men Type: BLOOD SPECIMEN Ordering Facility: [facility] [place] Address: [address] [place] [address] Performed By: #### 2 4323-8, 3016-3 #### [facility] CLIA [id number] [address] [place] [address] [place] ALP [Catalytic activity/Vol] 81 U/L Normal 38-113 [facility] Comment on above: Order Comment: Speci men Type: BLOOD SPECIMEN Ordering Facility: [facility] [place] Address: [address] [place] [address] Performed By: #### 2 4323-8, 3016-3 #### [facility] CLIA [id number] [address] [place] ALT [Catalytic activity/Vol] 19 U/L Normal 10-54 [facility] Comment on above: Order Comment: Speci men Type: BLOOD SPECIMEN Ordering Facility: [facility] [place] Address: [address] [place] [address] Performed By: #### 2 4323-8, 3016-3 #### [facility] CLIA [id number] [address] Anion gap [Moles/Vol] 10 mmol/L Normal 8-15 [facility] Comment on above: Order Comment: Speci men Type: BLOOD SPECIMEN Ordering Facility: [facility] [place] Address: [address] [place] [address] Performed By: #### 2 4323-8, 3016-3 #### [facility] CLIA [id number] [address] [place] AST [Catalytic activity/Vol] 18 U/L Normal 14-40 [facility] Comment on above: Order Comment: Speci men Type: BLOOD SPECIMEN Ordering Facility: [facility] [place] Address: [address] [place] [address] Performed By: #### 2 4323-8, 3016-3 #### [facility] CLIA [id number] [address] [place] [address] [place] Bilirubin [Mass/Vol] 0.3 mg/dL Normal 0.2-1.3 [facility] Comment on above: Order Comment: Speci men Type: BLOOD SPECIMEN Ordering Facility: [facility] [place] Address: [address] [place] [address] Performed By: #### 2 4323-8, 3016-3 #### [facility] CLIA [id number] [address] [place] [address] [place] Calcium [Mass/Vol] 8.9 mg/dL Normal 8.5-10.2 [facility] Comment on above: Order Comment: Speci men Type: BLOOD SPECIMEN Ordering Facility: [facility] [place] Address: [address] [place] [address] Performed By: #### 2 4323-8, 6-3 #### [facility] CLIA [id number] [address] [place] [address] [place] Chloride [Moles/Vol] 97 mmol/L Low 98-107 [facility] Comment on above: Order Comment: Speci men Type: BLOOD SPECIMEN Ordering Facility: [facility] [place] Address: [address] [place] [address] Performed By: #### 2 4323-8, 3016-3 #### [facility] CLIA [id number] [address] [place] [address] [place] CO2 [Moles/Vol] 23 mmol/L Normal 22-30 [facility] Comment on above: Order Comment: Speci men Type: BLOOD SPECIMEN Ordering Facility: [facility] [place] Address: [address] [place] [address] Performed By: #### 2 4323-8, 3016-3 #### [facility] CLIA [id number] [address] [place] [address] [place] Creatinine [Mass/Vol] 0.75 mg/dL Normal 0.73-1.22 [facility] Comment on above: Order Comment: Speci men Type: BLOOD SPECIMEN Ordering Facility: [facility] [place] Address: [address] [place] [address] Performed By: #### 2 4323-8, 3016-3 #### [facility] CLIA [id number] [address] [place] [address] [place] [facility] Creatinine and Glomerular filtration rate.predicted panel (S/P/Bld) 98 mL/min/1.73m??? Normal >=60 [facility] Comment on above: Order Comment: Maira chacon Type: BLOOD SPECIMEN Ordering Facility: [facility] [place] Address: [address] [place] [address] Result Comment: Amy mated Glomerular Filtration Rate (eGFR) is calculated using the 2020 CKD-EPI creatinine equation. This equation utilizes serum creatinine, sex, and age as parameters. The creatinine assay has traceable calibration to isotope dilution-mass spectrometry. Refer to KDIGO guidelines for clinical interpretation. In patients with unstable renal function, e.g. those with acute kidney injury, the eGFR may not accurately reflect actual GFR. Performed By: #### 2 4323-8, 6-3 #### [facility] CLIA [id number] [address] [place] [address] [place] Glucose [Mass/Vol] 112 mg/dL High 74-99 [facility] Comment on above: Order Comment: Maira chacon Type: BLOOD SPECIMEN Ordering Facility: [facility] [place] Address: [address] [place] [address] Result Comment: The [place] Diabetes Association (ADA) provides guidance for cutoff values for fasting glucose and random glucose. The ADA defines fasting as no caloric intake for at least 8 hours. Fasting plasma glucose results between 100 to 125 mg/dL indicate increased risk for diabetes (prediabetes). Fasting plasma glucose results greater than or equal to 126 mg/dL meet the criteria for diagnosis of diabetes. In the absence of unequivocal hyperglycemia, results should be confirmed by repeat testing. In a patient with classic symptoms of hyperglycemia or hyperglycemic crisis, random plasma glucose results greater than or equal to 200 mg/dL meet the criteria for diagnosis of diabetes. Reference: Standards of Medical Care in Diabetes 2016, [place] [employer]. Diabetes Care. 2016.39(Suppl 1). Performed By: #### 2 4323-8, 3016-3 #### [facility] CLIA [id number] [address] [place] [address] [place] Potassium [Moles/Vol] 4.7 mmol/L Normal 3.7-5.1 [facility] Comment on above: Order Comment: Speci men Type: BLOOD SPECIMEN Ordering Facility: [facility] [place] Address: [address] [place] [address] Performed By: #### 2 4323-8, 3016-3 #### [facility] CLIA [id number] [address] Protein [Mass/Vol] 7.1 g/dL Normal 6.3-8.0 [facility] Comment on above: Order Comment: Speci men Type: BLOOD SPECIMEN Ordering Facility: [facility] [place] Address: [address] [place] [address] Performed By: #### 2 4323-8, 3016-3 #### [facility] CLIA [id number] [address] Sodium [Moles/Vol] 130 mmol/L Low 136-144 [facility] Comment on above: Order Comment: Speci men Type: BLOOD SPECIMEN Ordering Facility: [facility] [place] Address: [address] [place] [address] Performed By: #### 2 4323-8, 3016-3 #### [facility] CLIA [id number] [address] Urea nitrogen [Mass/Vol] 14 mg/dL Normal 9-24 [facility] Comment on above: Order Comment: Speci men Type: BLOOD SPECIMEN Ordering Facility: [facility] [place] Address: [address] [place] [address] Performed By: #### 2 4323-8, 3016-3 #### [facility] CLIA [id number] [address] [place] ED PROV NOTEon 03-16-2025 ED PROV NOTE HNO ID: [id number] Author: MILAN TERAN III, MD Service: ? Author Type: Physician Type: ED Provider Notes Filed: 03/16/2025 21:50 Note Text: ED Provider Note Patient Name: Dionisio Orellana : 1955 SERVICE DATE: 03/16/25 History Patient presents with: Dental Problem: Back in january started with a dentla infection that he was placed on antiubiotics for, thought he needed a root canal but then odontist said it was actually a piece of bone that was that needed removed, had that removed and was referred to infectious disease, is still having some pain and swelling and causing a head ache, oral surgeon referred him to ER for concern of osteomyelitis from bone infection 69-year-old male presents the emergency department with a bone infection. He states he had dental pain and was seen by a dentist in January and put on antibiotics. He was then seen by an Maxillofacial Surgery on 02/26/25 and had to remove portion of the bone. His path report came back for acute osteomyelitis and he was referred to outpatient infectious disease. He states he cannot get until next week and he has been having more severe pain and tenderness along the jawline. No fevers or chills. There is no drainage or redness. He is not currently on any antibiotics. History provided by: Patient language interpreter used: No History reviewed. No pertinent past medical history. No past surgical history on file. No family history on file. Social History Tobacco Use Smoking status: Every Day Current packs/day: 1.00 Average packs/day: 1 pack/day for 40.0 years (40.0 ttl pk-yrs) Types: Cigarettes Smokeless tobacco: Never Vaping Use Vaping status: Never Used Substance and Sexual Activity Alcohol use: Not Currently Drug use: Never Sexual activity: Not on file ALLERGIES No Known Allergies Review of Systems Constitutional: Negative for chills and fever. HENT: Positive for dental problem. Negative for congestion and sore throat. Eyes: Negative. Respiratory: Negative for cough and shortness of breath. Cardiovascular: Negative for chest pain and palpitations. Gastrointestinal: Negative for abdominal pain and vomiting. Endocrine: Negative. Genitourinary: Negative for dysuria and frequency. Musculoskeletal: Negative for arthralgias and myalgias. Skin: Negative for rash and wound. Allergic/Immunologic: Negative. Neurological: Negative for dizziness and syncope. Psychiatric/Behaviora l: Negative. Physical Exam Vitals [03/16/25 1123] BP Pulse Temp Temp src Resp SpO2 Weight Height 181/92 85 36.5 ?C (97.7 ?F) Oral 16 99 % 81.6 kg (180 lb) 1.803 m (5' 10.98") Physical Exam Vitals and nursing note reviewed. Constitutional: General: He is not in acute distress. Appearance: Normal appearance. He is not toxic-appearing. HENT: Head: Normocephalic and atraumatic. Mouth/Throat: Lips: Paden. Mouth: Mucous membranes are moist. Cardiovascular: Rate and Rhythm: Normal rate and regular rhythm. Pulses: Normal pulses. Pulmonary: Effort: Pulmonary effort is normal. Breath sounds: Normal breath sounds. No wheezing, rhonchi or rales. Abdominal: General: Bowel sounds are normal. Palpations: Abdomen is soft. Tenderness: There is no abdominal tenderness. Skin: General: Skin is warm. Capillary Refill: Capillary refill takes less than 2 seconds. Neurological: Mental Status: He is alert and oriented to person, place, and time. Psychiatric: Mood and Affect: Mood normal. Behavior: Behavior normal. Behavior is cooperative. Diagnostic Testing ED Labs Ordered and Reviewed COMPREHENSIVE METABOLIC PANEL - Abnormal; Notable for the following components: Result Value Ref Range Glucose 112 (*) 74 - 99 mg/dL Sodium 130 (*) 136 - 144 mmol/L Chloride 97 (*) 98 - 107 mmol/L All other components within normal limits COMPLETE BLOOD COUNT AND DIFFERENTIAL - Abnormal; Notable for the following components: MPV 8.5 (*) 9.0 - 12.7 fL All other components within normal limits C-REACTIVE PROTEIN - Normal SEPSIS LACTATE W/ REFLEX (INITIAL) - Normal SEDIMENTATION RATE, WESTERGREN BACTERIAL CULTURE, BLOOD BACTERIAL CULTURE, BLOOD Procedures ED Course / Clinical Impression Clinical Impressions as of 03/16/25 1647 Acute osteomyelitis (HCC) Odontalgia Smoker MDM / Disposition / Plan Vital signs, triage records and nursing notes were reviewed and incorporated. Patient is a 69 year old male who presents today with jaw infection. Physical exam reveals non-toxic appearing male, AANDOX3, neurologically intact, breathing is unlabored, no use of accessory muscles. . Vital signs are stable on initial exam.Ordered and reviewed labwork with findings of CBC unremarkable, CMP remarkable for sodium of 130, CRP 1.4. Blood cultures were drawn and sent. History and Record Review Clinical information obtained from an independent historian. History obtained from or co (more content not included)... Normal [facility] ED Triage Noteon 03-16-2025 ED Triage Note HNO ID: [id number] Author: ARYA ABBASI MD Service: Emergency Medicine Author Type: Physician Type: ED Triage Notes Filed: 03/16/2025 11:32 Note Text: ED INTAKE NOTE Patient Name: Dionisio Orellana Service Date: 03/16/25 BRIEF HPI: This is a 69 year old male who presents to the ED with: Dental infection. Patient has had previous dental infection starting in January for which he was placed on antibiotics. He was found to have a piece of bone that was surgically removed. Still continues to have pain and swelling of his face and now headache with oral surgeon referring patient to emergency department for evaluation for underlying infection. Denies any fevers, chills, nausea, vomiting, difficulty with swallowing. BRIEF EXAM: NAD Awake and Alert Non labored breathing No significant facial swelling. No trismus. Oral cavity moist. INITIAL WORKUP AND DECISION MAKING: Orders Placed This Encounter CT FACIAL BONES W IVCON COMP METABOLIC PANEL (BMP+LFT) CBC + DIFF C-REACTIVE PROTEIN (CRP) Sedimentation Rate, Westergren iv contrast (radiology procedure) Provider examination performed via virtual platform with assistance from bedside clinician. SIGNATURE: Arya Abbasi MD Normal [facility] ESR Westergren method (Bld) [Velocity]on 03-16-2025 ESR (Bld) [Velocity] 15 mm/h Normal 0-15 [facility] Comment on above: Order Comment: Speci men Type: BLOOD SPECIMEN Ordering Facility: [facility] [place] Address: [address] [place] [address] Performed By: #### 2 4323-8, 3016-3 #### [facility] CLIA [id number] [address] [place] [address] [place] HISTORY PHYSICALon HISTORY PHYSICAL HNO ID: [id number] Author: RAMESH ROUSSEAU APRN.CNP Service: Hospital Medicine Author Type: Nurse Practitioner Type: H&P Filed: 03/16/2025 17:49 Note Text: Attestation signed by Annabella Matute MD at 03/18/2025 6:59 PM Attending Note I have personally reviewed [employer] note. Agree with above Rian and P. Annabella Matute MD DEPARTMENT OF HOSPITAL MEDICINE HISTORY AND PHYSICAL EXAM SERVICE DATE: 03/16/2025 SERVICE TIME: 5:12 PM Primary Care Physician: Greer Austin NP (Inactive) NIGHT AND WEEKEND COVERAGE: [facility] COVERAGE: Days: [phone], please page attending physician. Nights: [phone], please page [place] [facility] Night coverage pager [phone]. Subjective CHIEF COMPLAINT: acute jaw osteomyelitis HPI: This is a 69 year old male who presents with dental pain and was seen by a dentist in January and put on antibiotics, 7 day course of amoxicillin. He was then seen by an Maxillofacial Surgery on 02/26/25 and had to remove portion of the bone. His path report came back for acute osteomyelitis and he was referred to outpatient infectious disease. He states he cannot get until next week and he has been having more severe pain and tenderness along the jawline, R-sided. So he came to the emergency room for eval and treatment. ED spoke with the ID they recommended Zosyn and vancomycin and a PICC line placement for long-term antibiotics also the ED staff spoke with dentistry no need for any surgeries at this point he can follow-up as an outpatient. Patient denies any fever/chills, no oral drainage, change in taste, denies nay difficulty breathing/managing secretions. No wound noted on exam. Denies any difficulty eating, reports adequate oral intake. CMP; glucose:112, Na: 130, Cl: 97. CBC; WNL. CRP: 0.4. Sed rate: in process. Blood cultures: in process. Lactate:0.7. CT facial bones: Broad linear lucency along the oral surface of the body and parasymphyseal mandible on the right with areas of cortical break along the anterior and posterior margins, which may reflect sequelae of chronic infectious/inflammato ry process. Asymmetric ill-defined induration/obscuratio n of the adjacent soft tissue planes extending along the inferior margin of the mandible into the submental region. No discretesuperimposed sizable subperiosteal abscess or organized collection. Received 3.375g zosyn, 1.25 vanco, 4mg zofran, 4mg morphine. History reviewed. No pertinent past medical history. No past surgical history on file. No family history on file. Social History Tobacco Use Smoking status: Every Day Current packs/day: 1.00 Average packs/day: 1 pack/day for 40.0 years (40.0 ttl pk-yrs) Types: Cigarettes Smokeless tobacco: Never Vaping Use Vaping status: Never Used Substance Use Topics Alcohol use: Not Currently Drug use: Never PRIOR TO ADMISSION MEDICATIONS: Prior to Admission Medications Prescriptions Last Dose Informant Patient Reported? Taking? irbesartan (AVAPRO) 150 mg tablet 03/16/2025 at 6:00 AM Yes Yes Sig: Take 150 mg by mouth one time only. Facility-Administered Medications: None ALLERGIES No Known Allergies REVIEW OF SYSTEM: PAIN ASSESSMENT: Negative for pain, history of chronic pain, or current treatment for a chronic pain condition. GENERAL: No weight loss, malaise or fevers. HEENT: R-sided jaw pain NECK: Negative for lumps, goiter, pain and significant neck swelling RESPIRATORY: Negative for cough, hemoptysis, wheezing or shortness of breath CARDIOVASCULAR: Negative for chest pain, leg swelling or palpitations. GI: No nausea, vomiting, or diarrhea : No history of dysuria, frequency or incontinence. MUSCULOSKELETAL: Negative for joint pain or swelling, back pain or muscle pain. SKIN: Negative for lesions, rash, and itching. PSYCH: Negative for sleep disturbance, mood disorder and recent psychosocial stressors. HEMATOLOGY/LYMPHOLOGY : Negative for prolonged bleeding, bruising easily or swollen nodes. ENDOCRINE: Negative for cold or heat intolerance, polyuria, polydipsia and goiter. NEURO: No history of headaches, syncope, paralysis, seizures or tremors Objective PHYSICAL EXAM: BP 194/105 Pulse 79 Temp (Src) 98.4 (Oral) Resp 18 Ht 5' 10" (1.78m) Wt 180 lb 0.1 oz (81.7kg) SpO2 99% BMI 25.83 kg/(m2). O2 Therapy: Room Air Physical Exam Performed: GENERAL: alert, no distress, cooperative SKIN: Skin color, texture, turgor normal. No rashes or lesions. NECK: no jugulovenous distention, supple BACK: Back symmetric, Normal curvature, ROM normal, LUNGS: Lungs clear to auscultation. Good diaphragmatic excursion. CARDIAC: RRR; no rubs, murmurs, or gallops ABDOMEN: Abdomen soft, non-tender. BS normal. EXTREMITIES: Extremities normal. No deformities, edema, clubbing or skin di (more content not included)... Normal [facility] Osmolality SerPlon Osmolality [Osmolality] 276 mosm/kg Normal 275-300 [facility] Comment on above: Order Comment: Speci men Type: BLOOD SPECIMENOrdering Facility: [facility] [place] Address: [address] [place] [address] Performed By: #### 2 692-2 ####[facility] LABCLIA [id number] [address] [place] [facility] Osmolality Uron 03-16-2025 Osmolality (U) [Osmolality] 255 mosm/kg Normal 50-1200 [facility] Comment on above: Order Comment: Maira chacon Type: BLOOD SPECIMEN Ordering Facility: [facility] [place] Address: [address] [place] [address] Performed By: #### 5 7021-8 #### [facility] CLIA [id number] [address] [place] [address] [place] [facility] SEPSIS LACTATE W/ REFLEX (IN ITIAL)on 03-16-2025 Lactate [Moles/Vol] 0.7 mmol/L Normal 0.5-2.0 [facility] Comment on above: Order Comment: Rubeni men Type: BLOOD SPECIMEN Ordering Facility: [facility] [place] Address: [address] [place] [address] Performed By: #### 5 7021-8 #### [facility] CLIA [id number] [address] [place] [facility] Sodium ?Tm Ur-sCncon 025 Sodium Unsp time (U) [Moles/Vol] 56 mmol/L Normal 14-216 [facility] Comment on above: Order Comment: Speci men Type: URINE SPECIMENOrdering Facility: [facility] [place] Address: [address] [place] [address] Performed By: #### 3 5678-2 ####[facility] LABCLIA [id number] [place] [id number] [place] CBC W/Diff, Automatedon 12-09 29-2023 Absolute Lymph 2.75 X10 3/uL Normal 0.83-4.[address] [facility] Comment on above: Performed By: #### L 500.4100, L100.0100, L500.4050, L501.9910 #### [facility] [address] [place], [address] Absolute Neut 4.7 X10 3/uL Normal 2.0-7.[address] [facility] Comment on above: Performed By: #### L 500.4100, L100.0100, L500.4050, [id number] #### [facility] [address] [place], [address] Basophils/100 WBC (Bld) 1.2 % High 0-1 [facility] Comment on above: Performed By: #### L 500.4100, L100.0100, L500.4050, [id number] #### [facility] [address] [place], [address] Eosinophils/100 WBC (Bld) 2.6 % Normal 0-[address] [facility] Comment on above: Performed By: #### L 500.4100, L100.0100, L500.4050, [id number] #### [facility] [address] [place], [address] Erythrocyte distribution width (RBC) [Ratio] 13.3 % Normal 11.6-14.[address] [facility] Comment on above: Performed By: #### L 500.4100, L100.0100, L500.4050, L501.9910 #### [facility] [address] [place], [address] Hematocrit (Bld) [Volume fraction] 43.2 % Normal 40-[address] [facility] Comment on above: Performed By: #### L 500.4100, L100.0100, L500.4050, L501.9910 #### [facility] [address] [place], [address] Hemoglobin (Bld) [Mass/Vol] 15.0 g/dL Normal 13.0-16.[address] [facility] Comment on above: Performed By: #### L 500.4100, L100.0100, L500.4050, [id number] #### [facility] [address] [place], [address] IG% 0.300 Normal 0.0-0.[address] [facility] Comment on above: Result Comment: IG% - Immature Granulocytes (promyelocytes, myelocytes and metamyelocytes) > 1% indicates that a LEFT SHIFT is Present. Performed By: #### L 500.4100, L100.0100, L500.4050, L501.9910 #### [facility] [address] [place], [address] Lymphocytes/100 WBC (Bld) 31.7 % Normal 19-[address] [facility] Comment on above: Performed By: #### L 500.4100, L100.0100, L500.4050, [id number] #### [facility] [address] [place], [address] MCH (RBC) [Entitic mass] 32.7 pg High 27.0-32.[address] [facility] Comment on above: Performed By: #### L 500.4100, L100.0100, L500.4050, [id number] #### [facility] [address] [place], [address] MCHC (RBC) [Mass/Vol] 34.7 g/dL Normal 32-36 [facility] Comment on above: Performed By: #### L 500.4100, L100.0100, L500.4050, [id number] #### [facility] [address] [place], [address] MCV (RBC) [Entitic vol] 94.1 fL High 80-94 [facility] Comment on above: Performed By: #### L 500.4100, L100.0100, L500.4050, [id number] #### [facility] [address] [place], [address] Monocytes/100 WBC (Bld) 9.9 % Normal 0-10 [facility] Comment on above: Performed By: #### L 500.4100, L100.0100, L500.4050, [id number] #### [facility] [address] [place], [address] Neutrophils/100 WBC (Bld) 54.3 % Normal 47-[address] [facility] Comment on above: Performed By: #### L 500.4100, L100.0100, L500.4050, [id number] #### [facility] [address] [place], [address] Nucleated RBC (Bld) [#/Vol] 0 10*3/uL Normal 0-[address] [facility] Comment on above: Performed By: #### L 500.4100, L100.0100, L500.4050, [id number] #### [facility] [address] [place], [address] Platelet mean volume (Bld) [Entitic vol] 9.3 fL Normal 6.2-12.[address] [facility] Comment on above: Performed By: #### L 500.4100, L100.0100, L500.4050, [id number] #### [facility] [address] [place], [address] Platelets (Bld) [#/Vol] 308 10*3/uL Normal 150-[address] [facility] Comment on above: Performed By: #### L 500.4100, L100.0100, L500.4050, [id number] #### [facility] [address] [place], [address] RBC (Bld) [#/Vol] 4.59 10*6/uL Low 4.6-6.2 [facility] Comment on above: Performed By: #### L 500.4100, L100.0100, L500.4050, [id number] #### [facility] [address] [place], [address] RDW SD 45.9 fl High 35.1-43.[address] [facility] Comment on above: Performed By: #### L 500.4100, L100.0100, L500.4050, [id number] #### [facility] [address] [place], [address] WBC (Bld) [#/Vol] 8.7 10*3/uL Normal 4.4-11.0 [facility] Comment on above: Performed By: #### L 500.4100, L100.0100, L500.4050, [id number] #### [facility] [address] [place], [address] Comprehensive Metabolic Prof [facility] 09-08-2024 Albumin [Mass/Vol] 4.0 g/dL Normal 3.2-5.0 [facility] Comment on above: Performed By: #### L 500.4100, L100.0100, L500.4050, [id number] #### [facility] [address] [place], [address] Albumin/Globulin [Mass ratio] 1.5 {ratio} Normal 0.9-2.[address] [facility] Comment on above: Performed By: #### L 500.4100, L100.0100, L500.4050, [id number] #### [facility] [address] [place], [address] ALK P 78 U/L Normal 45-[address] [facility] Comment on above: Performed By: #### L 500.4100, L100.0100, L500.4050, [id number] #### [facility] [address] [place], [address] ALT [Catalytic activity/Vol] 31 U/L Normal 16-[address] [facility] Comment on above: Performed By: #### L 500.4100, L100.0100, L500.4050, [id number] #### [facility] [address] [place], [address] AST [Catalytic activity/Vol] 15 U/L Normal 15-[address] [facility] Comment on above: Performed By: #### L 500.4100, L100.0100, L500.4050, [id number] #### [facility] [address] [place], [address] Bilirubin [Mass/Vol] 0.30 mg/dL Normal 0.20-1.00 [facility] Comment on above: Result Comment: For patients on eltrombopag therapy, use of Dimension [place] TBIL is not recommended. Performed By: #### L 500.4100, L100.0100, L500.4050, [id number] #### [facility] [address] [place], [address] BUN/CRE 10.0 RATIO Normal 10-[address] [facility] Comment on above: Performed By: #### L 500.4100, L100.0100, L500.4050, [id number] #### [facility] [address] [place], [address] CA,Total 9.3 mg/dL Normal 8.5-10.[address] [facility] Comment on above: Performed By: #### L 500.4100, L100.0100, L500.4050, [id number] #### [facility] [address] [place], [address] Chloride [Moles/Vol] 103 mmol/L Normal 98-107 [facility] Comment on above: Performed By: #### L 500.4100, L100.0100, L500.4050, [id number] #### [facility] [address] [place], [address] CO2 [Moles/Vol] 31.0 mmol/L Normal 21.0-32.[address] [facility] Comment on above: Performed By: #### L 500.4100, L100.0100, L500.4050, L501.9910 #### [facility] [address] [place], [address] Creatinine [Mass/Vol] 1.00 mg/dL Normal 0.70-1.30 [facility] Comment on above: Result Comment: The validity of the calculated GFR GFRAA in patients over 70 years has not been determined. Clinical correlation is essential. Performed By: #### L 500.4100, L100.0100, L500.4050, L501.9910 #### [facility] [address] [place], [address] EST GFR - AA 95 mL/min Normal >[address] [facility] Comment on above: Result Comment: Afri can [place] GFR Calc Performed By: #### L 500.4100, L100.0100, L500.4050, [id number] #### [facility] [address] [place], [address] GAP 2 Low 5-[address] [facility] Comment on above: Performed By: #### L 500.4100, L100.0100, L500.4050, [id number] #### [facility] [address] [place], [address] GFR/1.73 sq M.predicted among non-blacks MDRD (S/P/Bld) [Vol rate/Area] 79 mL/min/{1.73_m2} Normal >[address] [facility] Comment on above: Result Comment: Non- GFR Calc Performed By: #### L 500.4100, L100.0100, L500.4050, L501.9910 #### [facility] [address] [place], [address] Globulin (S) [Mass/Vol] 2.6 g/dL Normal 2.2-4.2 [facility] Comment on above: Performed By: #### L 500.4100, L100.0100, L500.4050, L501.9910 #### [facility] [address] [place], [address] Glucose [Mass/Vol] 99 mg/dL Normal 74-106 [facility] Comment on above: Performed By: #### L 500.4100, L100.0100, L500.4050, [id number] #### [facility] [address] [place], [address] Potassium [Moles/Vol] 4.7 mmol/L Normal 3.5-5.1 [facility] Comment on above: Performed By: #### L 500.4100, L100.0100, L500.4050, L501.9910 #### [facility] [address] [place], [address] Sodium [Moles/Vol] 136 mmol/L Normal 136-145 [facility] Comment on above: Performed By: #### L 500.4100, L100.0100, L500.4050, L501.9910 #### [facility] [address] [place], [address] T PROT 6.6 g/dL Normal 6.4-8.[address] [facility] Comment on above: Performed By: #### L 500.4100, L100.0100, L500.4050, L501.9910 #### [facility] [address] [place], [address] Urea nitrogen [Mass/Vol] 10 mg/dL Normal 7-[address] [facility] Comment on above: Performed By: #### L 500.4100, L100.0100, L500.4050, L501.9910 #### [facility] [address] [place], [address] Lipid Profileon 09-08-2024 Cholesterol [Mass/Vol] 176 mg/dL Normal 200 [facility] Comment on above: Result Comment: <200 mg/dL Desirable 200-240 mg/dL Borderline >240 mg/dL High Risk Performed By: #### L 500.4100, L100.0100, L500.4050, L501.9910 #### [facility] [address] [place], [address] Cholesterol in HDL [Mass/Vol] 57 mg/dL Normal [facility] Comment on above: Result Comment: The drugs N-Acetylcysteine and Metamizole may falsely depress this assay. Reference Range HDL <40 mg/dL Low HDL Cholesterol HDL >or= 60 mg/dL High HDL Cholesterol Performed By: #### L 500.4100, L100.0100, L500.4050, L501.9910 #### [facility] [address] [place], [address] Cholesterol in LDL [Mass/Vol] 70 mg/dL Normal 0-[address] [facility] Comment on above: Performed By: #### L 500.4100, L100.0100, L500.4050, L501.9910 #### [facility] [address] [place], [address] Cholesterol in VLDL [Mass/Vol] 49 mg/dL High 5-[address] [facility] Comment on above: Performed By: #### L 500.4100, L100.0100, L500.4050, L501.9910 #### [facility] [address] [place], [address] Triglyceride [Mass/Vol] 247 mg/dL High [facility] Comment on above: Result Comment: The drugs N-Acetylcysteine and Metamizole may falsely depress this assay. Serum Triglycerides Reference Interval Normal <150 mg/dL Borderline high 150 - 199 mg/dL High 200 - 499 mg/dL Very High > or = 500 mg/dL Performed By: #### L 500.4100, L100.0100, L500.4050, L501.9910 #### [facility] [address] [place], [address] PSA,Total - Annual Screenon 09-08-2024 PSA,TOT SCREEN 2.33 ng/mL Normal 0.00-4.[address] [facility] Comment on above: Result Comment: This test was performed using the TPSA assay method for the [employer] chemistry system. Values obtained with different assay methods cannot be used interchangably. When changing PSA assays in the course of monitoring a patient, additional sequential testing should be carried out to confirm baseline values. Performed By: #### L 500.4100, L100.0100, L500.4050, L501.9910 #### [facility] [address] [place], [address] Absolute lymphocyte countOrd ered By: Greer Austin on 09-16-2023 Lymphocytes Auto (Unsp spec) [#/Vol] 2.66 10*3/uL 0.83-4.[address] [facility] Basophil percentageOrdered B y: Greer Austin on 09-16-2023 Basophils/100 WBC (Bld) 1.0 % 0-1 [facility] Bilirubin [Mass/Vol] 0.30 mg/dL 0.20-1.00 [facility] Comment on above: For patients on eltr ombopag therapy, use of Dimension [place] TBIL is not recommended. Chloride [Moles/Vol] 105 mmol/L 98-107 [facility] Cholesterol [Mass/Vol] 185 mg/dL <200 [facility] Comment on above: <200 mg/dL Desirable 200-240 mg/dL Borderline >240 mg/dL High Risk Eosinophils/100 WBC (Bld) 2.0 % 0-[address] [facility] Glucose [Mass/Vol] 91 mg/dL 74-106 [facility] Neutrophils (Bld) [#/Vol] 5.2 10*3/uL 2.0-7.[address] [facility] Neutrophils/100 WBC (Bld) 58.8 % 47-[address] [facility] Potassium [Moles/Vol] 4.5 mmol/L 3.5-5.1 [facility] Protein [Mass/Vol] 7.1 g/dL 6.4-8.2 [facility] Sodium [Moles/Vol] 137 mmol/L 136-145 [facility] Triglyceride [Mass/Vol] 156 mg/dL <199 [facility] Comment on above: The drugs N-Acetylcy steine and Metamizole may falsely depress this assay.Serum Triglycerides Reference Interval Normal <150 mg/dL Borderline high 150 - 199 mg/dL High 200 - 499 mg/dL Very High > or = 500 mg/dL WBC (Bld) [#/Vol] 8.9 10*3/uL 4.4-11.0 [facility] Blood erythrocytes count (nu mber/volume)Ordered By: Greer Austin on 09-16-2023 RBC (Bld) [#/Vol] 4.63 10*6/uL 4.6-6.2 [facility] Blood hemoglobin measurement (mass/volume)Ordered By: Greer Austin on 09-16-2023 Hemoglobin (Bld) [Mass/Vol] 15.0 g/dL 13.0-16.[address] [facility] Blood lymphocytes/100 leukoc ytesOrdered By: Greer Austin on 09-16-2023 Lymphocytes/100 WBC (Bld) 29.9 % 19-[address] [facility] Blood monocytes/100 leukocyt esOrdered By: Greer Austin on 09-16-2023 Monocytes/100 WBC (Bld) 8.1 % 0-10 [facility] Blood platelet mean volumeOr dered By: Greer Austin on 09-16-2023 Platelet mean volume (Bld) [Entitic vol] 10.1 fL 6.2-12.[address] [facility] Determination of erythrocyte mean corpuscular volume (MCV)Ordered By: Greer Austin on 09-16-2023 MCV (RBC) [Entitic vol] 96.3 fL 80-94 [facility] Hematocrit Auto (Bld) [Volum e fraction]Ordered By: Greer Austin on 09-16-2023 Hematocrit (Bld) [Volume fraction] 44.6 % 40-[address] [facility] - Chemistry and C hemistry - challengeOrdered By: Greer Austin on 09-16-2023 ALP [Catalytic activity/Vol] 78 U/L 45-[address] [facility] ALT [Catalytic activity/Vol] 35 U/L 16-[address] [facility] CO2 [Moles/Vol] 27.0 mmol/L 21.0-32.[address] [facility] Globulin (S) [Mass/Vol] 3.1 g/dL 2.2-4.2 [facility] Urea nitrogen/Creatinine [Mass ratio] 13.9 mg/mg 10-[address] [facility] - Hematology and Cell countsOrdered By: Greer Austin on 09-16-2023 Erythrocyte distribution width (RBC) [Entitic vol] 47.8 fL 35.1-43.[address] [facility] Erythrocyte distribution width (RBC) [Ratio] 13.3 % 11.6-14.[address] [facility] Immature granulocytes/100 WBC (Bld) 0.200 % 0.0-0.[address] [facility] Comment on above: IG% - Immature Granu locytes (promyelocytes, myelocytes and metamyelocytes) > 1% indicates that a LEFT SHIFT is Present. MCH (RBC) [Entitic mass] 32.4 pg 27.0-32.[address] [facility] Nucleated RBC/100 WBC (Bld) [Ratio] 0 % 0-[address] [facility] MCHC Auto (RBC) [Mass/Vol]Or dered By: Greer Austin on 09-16-2023 MCHC (RBC) [Mass/Vol] 33.6 g/dL 32-36 [facility] No Panel InformationOrdered By: Greer Austin on 09-16-2023 Estimated GFR (MDRD) Amer 88 mL/min >[address] [facility] Comment on above: GFR Calc Estimated GFR (MDRD) Non-Af Amer 72 mL/min >[address] [facility] Comment on above: Non- GFR Calc Prostate Specific Antigen Total 1.14 ng/mL 0.0-4.[address] [facility] Comment on above: This test was perfor med using the TPSA assay method for the[employer] chemistry system. Values obtained with differentassay methods cannot be used interchangably.When changing PSA assays in the course of monitoring apatient, additional sequential testing should be carriedout to confirm baseline values. Platelets bldOrdered By: Trevin Austin on 09-16-2023 Platelets (Bld) [#/Vol] 281 10*3/uL 150-[address] [facility] Serum or plasma albumin disha urement (mass/volume)Ordered By: Greer Austin on 09-16-2023 Albumin [Mass/Vol] 4.0 g/dL 3.2-5.0 [facility] Serum or plasma albumin/glob ulin mass ratioOrdered By: Greer Austin on 09-16-2023 Albumin/Globulin [Mass ratio] 1.3 {ratio} 0.9-2.[address] [facility] Serum or plasma calcium disha urement (mass/volume)Ordered By: Greer Austin on 09-16-2023 Calcium [Mass/Vol] 9.1 mg/dL 8.5-10.1 [facility] Serum or plasma cholesterol in HDL measurement (mass/volume)Ordered By: Greer Austin on 09-16-2023 Cholesterol in HDL [Mass/Vol] 62 mg/dL >[address] [facility] Comment on above: The drugs N-Acetylcy steine and Metamizole may falsely depress this assay. Reference Range HDL <40 mg/dL Low HDL Cholesterol HDL >or= 60 mg/dL High HDL Cholesterol Serum or plasma cholesterol in VLDL measurement (mass/volume)Ordered By: Greer Austin on 09-16-2023 Cholesterol in VLDL [Mass/Vol] 31 mg/dL 5-[address] [facility] Serum or plasma creatinine m easurement (mass/volume)Ordered By: Greer Austin on 09-16-2023 Creatinine [Mass/Vol] 1.08 mg/dL 0.70-1.30 [facility] Comment on above: The validity of the calculated GFR & GFRAA in patients over 70 years has not been determined. Clinical correlation is essential. Serum or plasma low density lipoprotein (LDL) cholesterol measurement (mass/volume)Ordered By: Greer Austin on 09-16-2023 Cholesterol in LDL [Mass/Vol] 92 mg/dL 0-[address] [facility] Serum or plasma urea nitroge n measurement (mass/volume)Ordered By: Greer Austin on 09-16-2023 Urea nitrogen [Mass/Vol] 15 mg/dL 7-[address] [facility] Thin prep Papanicolaou smear with manual screeningOrdered By: Greer Austin on 09-16-2023 Thin prep Papanicolaou smear with manual screening 24 U/L 15-[address] [facility] Thin prep Papanicolaou smear with manual screening 5 5-[address] [facility] Absolute lymphocyte counton 09-23-2022 Lymphocytes Auto (Unsp spec) [#/Vol] 2.66 10*3/uL 0.83-4.[address] [facility] Work Phone: Basophil percentageon 2021 Basophils/100 WBC (Bld) 0.9 % 0-1 [facility] Work Phone: Bilirubin [Mass/Vol] 0.30 mg/dL 0.20-1.00 [facility] Work Phone: Comment on above: For patients on eltr ombopag therapy, use of Dimension [place] TBIL is not recommended. Chloride [Moles/Vol] 103 mmol/L 98-107 [facility] Work Phone: Cholesterol [Mass/Vol] 197 mg/dL <200 [facility] Work Phone: Comment on above: <200 mg/dL Desirable 200-240 mg/dL Borderline >240 mg/dL High Risk Eosinophils/100 WBC (Bld) 3.1 % 0-[address] [facility] Work Phone: Glucose [Mass/Vol] 95 mg/dL 74-106 [facility] Work Phone: Neutrophils (Bld) [#/Vol] 5.2 10*3/uL 2.0-7.[address] [facility] Work Phone: Neutrophils/100 WBC (Bld) 57.7 % 47-[address] [facility] Work Phone: Potassium [Moles/Vol] 4.4 mmol/L 3.5-5.1 [facility] Work Phone: Protein [Mass/Vol] 7.1 g/dL 6.4-8.2 [facility] Work Phone: Sodium [Moles/Vol] 135 mmol/L 136-145 [facility] Work Phone: Triglyceride [Mass/Vol] 134 mg/dL <199 [facility] Work Phone: Comment on above: The drugs N-Acetylcy steine and Metamizole may falsely depress this assay.Serum Triglycerides Reference Interval Normal <150 mg/dL Borderline high 150 - 199 mg/dL High 200 - 499 mg/dL Very High > or = 500 mg/dL WBC (Bld) [#/Vol] 9.0 10*3/uL 4.4-11.0 [facility] Work Phone: Blood erythrocytes count (nu mber/volume)on 09-23-2022 RBC (Bld) [#/Vol] 4.73 10*6/uL 4.6-6.2 [facility]: Blood hemoglobin measurement (mass/volume)on 09-23-2022 Hemoglobin (Bld) [Mass/Vol] 15.9 g/dL 13.0-16.[address] [facility] Work Phone: Blood lymphocytes/100 leukoc yteson 09-23-2022 Lymphocytes/100 WBC (Bld) 29.4 % 19-[address] [facility] Work Phone: Blood monocytes/100 leukocyt eson 09-23-2022 Monocytes/100 WBC (Bld) 8.5 % 0-10 [facility] Work Phone: Blood platelet mean volumeon 09-23-2022 Platelet mean volume (Bld) [Entitic vol] 10.4 fL 6.2-12.[address] [facility] Work Phone: Determination of erythrocyte mean corpuscular volume (MCV)on 09-23-2022 MCV (RBC) [Entitic vol] 93.2 fL 80-94 [facility] Work Phone: Hematocrit Auto (Bld) [Volum e fraction]on 09-23-2022 Hematocrit (Bld) [Volume fraction] 44.1 % 40-[address] [facility] Work Phone: Laboratory - Chemistry and C hemistry - challengeon 09-23-2022 ALP [Catalytic activity/Vol] 86 U/L 45-[address] [facility] Work Phone: ALT [Catalytic activity/Vol] 29 U/L 16-[address] [facility] Work Phone: CO2 [Moles/Vol] 29.0 mmol/L 21.0-32.[address] [facility] Work Phone: Globulin (S) [Mass/Vol] 2.9 g/dL 2.2-4.2 [facility] Work Phone: Urea nitrogen/Creatinine [Mass ratio] 18.2 mg/mg 10-[address] [facility] Work Phone: Laboratory - Hematology and Cell countson 09-23-2022 Erythrocyte distribution width (RBC) [Entitic vol] 46.2 fL 35.1-43.[address] [facility] Work Phone: Erythrocyte distribution width (RBC) [Ratio] 13.3 % 11.6-14.[address] [facility] Work Phone: Immature granulocytes/100 WBC (Bld) 0.400 % 0.0-0.[address] [facility] Work Phone: Comment on above: IG% - Immature Granu locytes (promyelocytes, myelocytes and metamyelocytes) > 1% indicates that a LEFT SHIFT is Present. MCH (RBC) [Entitic mass] 33.6 pg 27.0-32.[address] [facility] Work Phone: Nucleated RBC/100 WBC (Bld) [Ratio] 0 % 0-[address] [facility] Work Phone: MCHC Auto (RBC) [Mass/Vol]on 09-23-2022 MCHC (RBC) [Mass/Vol] 36.1 g/dL 32-36 [facility] Work Phone: No Panel Informationon 09-23 Estimated GFR (MDRD) Amer 104 mL/min >[address] [facility] Work Phone: Comment on above: GFR Calc Estimated GFR (MDRD) Non-Af Amer 86 mL/min >[address] [facility] Work Phone: Comment on above: Non- GFR Calc Prostate Specific Antigen Screen 1.27 ng/mL 0.00-4.[address] [facility] Work Phone: Comment on above: This test was perfor med using the TPSA assay method for the[employer] chemistry system. Values obtained with differentassay methods cannot be used interchangably.When changing PSA assays in the course of monitoring apatient, additional sequential testing should be carriedout to confirm baseline values. Platelets bldon 09-23-2022 Platelets (Bld) [#/Vol] 251 10*3/uL 150-[address] [facility] Work Phone: Serum or plasma albumin disha urement (mass/volume)on 09-23-2022 Albumin [Mass/Vol] 4.2 g/dL 3.2-5.0 [facility] Work Phone: Serum or plasma albumin/glob ulin mass ratioon 09-23-2022 Albumin/Globulin [Mass ratio] 1.4 {ratio} 0.9-2.[address] [facility] Work Phone: Serum or plasma calcium disha urement (mass/volume)on 09-23-2022 Calcium [Mass/Vol] 9.1 mg/dL 8.5-10.1 [facility] Work Phone: Serum or plasma cholesterol in HDL measurement (mass/volume)on 09-23-2022 Cholesterol in HDL [Mass/Vol] 65 mg/dL >[address] [facility] Work Phone: Comment on above: The drugs N-Acetylcy steine and Metamizole may falsely depress this assay. Reference Range HDL <40 mg/dL Low HDL Cholesterol HDL >or= 60 mg/dL High HDL Cholesterol Serum or plasma cholesterol in VLDL measurement (mass/volume)on 09-23-2022 Cholesterol in VLDL [Mass/Vol] 27 mg/dL 5-[address] [facility] Work Phone: Serum or plasma creatinine m easurement (mass/volume)on 09-23-2022 Creatinine [Mass/Vol] 0.93 mg/dL 0.70-1.30 [facility] Work Phone: Comment on above: The validity of the calculated GFR & GFRAA in patients over 70 years has not been determined. Clinical correlation is essential. Serum or plasma low density lipoprotein (LDL) cholesterol measurement (mass/volume)on 09-23-2022 Cholesterol in LDL [Mass/Vol] 105 mg/dL 0-[address] [facility] Work Phone: Serum or plasma urea nitroge n measurement (mass/volume)on 09-23-2022 Urea nitrogen [Mass/Vol] 17 mg/dL 7-[address] [facility] Work Phone: Thin prep Papanicolaou smear with manual screeningon 09-23-2022 Thin prep Papanicolaou smear with manual screening 20 U/L 15-[address] [facility] Work Phone: Thin prep Papanicolaou smear with manual screening 3 5-[address] [facility] Work Phone: Basic Metabolic Panelon 03-0 Anion gap molar conc 11 Normal [facility] Comment on above: Performed By: #### H EMDF, BMP3 #### [facility] [address] [place] [address] Calcium mass conc 8.7 mg/dL Normal 8.4-10.4 [facility] Comment on above: Performed By: #### H EMDF, BMP3 #### [facility] [address] [place] [address] CO2 molar conc 24 mmol/L Normal 22-30 [facility] Comment on above: Performed By: #### H EMDF, BMP3 #### [facility] [address] [place] [address] Glucose mass conc 124 mg/dL High 70-100 [facility] Comment on above: Performed By: #### H EMDF, BMP3 #### [facility] [address] [place] [address] Urea nitrogen mass conc 15 mg/dL Normal 7-20 [facility] Comment on above: Performed By: #### H EMDF, BMP3 #### [facility] [address] [place] [address] Creatinine mass conc 1.13 mg/dL Normal 0.52-1.25 [facility] Comment on above: Performed By: #### H EMDF, BMP3 #### [facility] [address] [place] [address] GFR/1.73 sq M predicted among blacks MDRD vol rate/area (S/P/Bld) mL/min/{1.73_m2} Normal >60 [facility] Comment on above: Performed By: #### H EMDF, BMP3 #### [facility] [address] [place] [address] GFR/1.73 sq M predicted among non-blacks MDRD vol rate/area (S/P/Bld) mL/min/{1.73_m2} Normal >60 [facility] Comment on above: Result Comment: Sour ce- MDRD equation with creatinine calibration to IDMS(NKDEP) eGFR not recommended for drug dose adjustment Performed By: #### H EMDF, BMP3 #### [facility] [address] [place] [address] Chloride molar conc 99 mmol/L Normal 98-107 [facility] Comment on above: Performed By: #### H EMDF, BMP3 #### [facility] [address] [place] [address] Potassium molar conc 4.2 mmol/L Normal 3.5-5.1 [facility] Comment on above: Performed By: #### H EMDF, BMP3 #### [facility] [address] [place] [address] Sodium molar conc 134 mmol/L Low 135-145 [facility] Comment on above: Performed By: #### H EMDF, BMP3 #### [facility] [address] [place] [address] CR Chest Portableon 12-02-19 19 CR Chest Portable Patient Name: DIONISIO ORELLANA Diagnostic Radiology Exam Date/Time 12/01/2018 08:41:49 EST Exam CR Chest Portable Ordering Physician MD ANA, JUSTINA Isidro Accession Number [id number] CPT4 Codes 03348 () Reason For Exam cough Report CHEST (Frontal View) History: Cough Comparison: None available Findings: Frontal portable chest view shows no lung infiltrate or congestion. The heart is normal in size. There is no mediastinal widening or pleural effusion. There is spondylosis. IMPRESSION: No acute pulmonary process. Report Dictated on Final Dictating Physician: MD TSAI AHMAD Signed Date and Time: 12/01/2018 8:47 am Signed by: MD TSAI AHMAD Transcribed Date and Time: 12/01/2018 8:48 Normal [facility] Hemogram w/ Autodiffon 12-01 Abs Baso Cnt 0.1 10*3/uL Normal 0.0-0.2 [facility] Comment on above: Performed By: #### H EMDElinae, BMP3 #### [facility] [address] [place] [address] Abs Neutrophile Cnt 10.6 10*3/uL High 1.8-7.0 [facility] Comment on above: Performed By: #### H EMDF, BMP3 #### [facility] [address] [place] [address] Basophils/100 WBC (Bld) 0.5 % Normal 0.0-2.0 [facility] Comment on above: Performed By: #### H EMDF, BMP3 #### [facility] [address] [place] [address] Eosinophils #/vol (Bld) 0.0 10*3/uL Normal 0.0-0.5 [facility] Comment on above: Performed By: #### H EMDF, BMP3 #### [facility] [address] [place] [address] Eosinophils/100 WBC (Bld) 0.0 % Low 1.0-6.0 [facility] Comment on above: Performed By: #### H EMDF, BMP3 #### [facility] [address] [place] [address] Erythrocyte distribution width Ratio (RBC) 13.9 % Normal 11.5-14.5 [facility] Comment on above: Performed By: #### H EMDF, BMP3 #### [facility] [address] [place] [address] Granulocytes/100 WBC (Bld) 86.3 % High 40.0-80.0 [facility] Comment on above: Performed By: #### H EMDF, BMP3 #### [facility] [address] [place] [address] Hematocrit Volume Fraction (Bld) 46.4 % Normal 40.0-52.0 [facility] Comment on above: Performed By: #### H EMDF, BMP3 #### [facility] [address] [place] [address] Hemoglobin mass conc (Bld) 15.5 g/dL Normal 13.0-18.0 [facility] Comment on above: Performed By: #### H EMDF, BMP3 #### [facility] [address] [place] [address] Lymphocytes #/vol (Bld) 0.6 10*3/uL Low 1.0-4.3 [facility] Comment on above: Performed By: #### H EMDF, BMP3 #### [facility] [address] [place] [address] Lymphocytes/100 WBC (Bld) 5.2 % Low 20.0-40.0 [facility] Comment on above: Performed By: #### H EMDF, BMP3 #### [facility] [address] [place] [address] MCH Entitic mass (RBC) 31.6 pg Normal 26.0-34.0 [facility] Comment on above: Performed By: #### H EMDF, BMP3 #### [facility] [address] [place] [address] MCHC mass conc (RBC) 33.5 % Normal 32.0-36.0 [facility] Comment on above: Performed By: #### H EMDF, BMP3 #### [facility] [address] [place] [address] MCV Entitic volume (RBC) 94.5 fL Normal 80.0-98.0 [facility] Comment on above: Performed By: #### H EMDF, BMP3 #### [facility] [address] [place] [address] Monocytes #/vol (Bld) 1.0 10*3/uL High 0.0-0.8 [facility] Comment on above: Performed By: #### H EMDF, BMP3 #### [facility] [address] [place] [address] Monocytes/100 WBC (Bld) 8.0 % Normal 2.0-10.0 [facility] Comment on above: Performed By: #### H EMDF, BMP3 #### [facility] [address] [place] [address] Platelet mean volume Entitic volume (Bld) 7.2 fL Low 7.4-10.4 [facility] Comment on above: Performed By: #### H EMDF, BMP3 #### [facility] [address] [place] [address] Platelets #/vol (Bld) 182 10*3/uL Normal 140-440 [facility] Comment on above: Performed By: #### H EMDF, BMP3 #### [facility] [address] [place] [address] RBC #/vol (Bld) 4.91 10*6/uL Normal 4.40-5.90 [facility] Comment on above: Performed By: #### H EMDF, BMP3 #### [facility] [address] [place] [address] WBC #/vol (Bld) 12.3 10*3/uL High 3.6-10.7 [facility] Comment on above: Performed By: #### H EMDF BMP3 #### [facility] [address] [place] [address] Rapid Flu A AND B, RNAon Rapid Influenza A Detected Abnormal Not Detected [facility] Comment on above: Performed By: #### R PFAB #### [facility] [address] [place] [address] Rapid Influenza B Not Detected Normal Not Detected [facility] Comment on above: Performed By: #### R PFAB #### [facility] [address] [place] [place] [address] Vital Signs Date Time Vital Sign Value Performing Clinician Priscilla monroe 09-16-2023 15:18-0500 Body height 177.8 cm [facility] 09-16-2023 15:18-0500 Body mass index (BMI) [Ratio] 26.2 kg/m2 [facility] 09-16-2023 15:18-0500 Body temperature 97.7 [degF] [facility] 09-16-2023 15:18-0500 Body weight 83 kg [facility] 09-16-2023 15:18-0500 Diastolic blood pressure 80 mm[Hg] [facility] 09-16-2023 15:18-0500 Heart rate 76 /min [facility] 09-16-2023 15:18-0500 Respiratory rate 18 /min [facility] 09-16-2023 15:18-0500 SaO2% (BldA) [Mass fraction] 99 % [facility] 09-16-2023 15:18-0500 Systolic blood pressure 158 mm[Hg] [facility] 09-23-2022 18:03-0500 Body height 177.8 cm [facility] Work Phone: 09-23-2022 18:03-0500 Body mass index (BMI) [Ratio] 26.5 kg/m2 [facility] Work Phone: 09-23-2022 18:03-0500 Body temperature 97.5 [degF] [facility] Work Phone: 09-23-2022 18:03-0500 Body weight 83.91 kg [facility] Work Phone: 09-23-2022 18:03-0500 Diastolic blood pressure 88 mm[Hg] [facility] Work Phone: 09-23-2022 18:03-0500 Heart rate 69 /min [facility] Work Phone: 09-23-2022 18:03-0500 Respiratory rate 18 /min [facility] Work Phone: 09-23-2022 18:03-0500 SaO2% (BldA) [Mass fraction] 99 % [facility] Work Phone: 09-23-2022 18:03-0500 Systolic blood pressure 160 mm[Hg] [facility] Work Phone: Encounters Encounter Date Encounter Type Care Provider Facility Start: 03-16-2025 End: 03-19-2025 Evaluation and management of inpatient COBY MARIE Facility:[facility] Start: 09-08-2024 End: 09-08-2024 ambulatory Greer Austin Facility:[facility] Start: 09-16-2023 End: 09-16-[address] [facility] Work Phone: Start: 09-16-2023 End: 09-16-2023 Patient encounter procedure [facility] Work Phone: Start: 09-23-2022 End: 09-23-[address] [facility] Work Phone: Start: 09-23-2022 End: 09-23-2022 Patient encounter procedure [facility] Start: 12-01-2018 Emergency department patient visit UNKNOWN PROVIDER [facility] Payers Date Payer Category Payer Self-pay [id number] 2024 Unknown [id number] 1955 Unknown [id number] Medicare MEDICARE PART A B [id number] Private Health Insurance 101 [id number] Private Health Insurance [id number] Unknown Unknown [facility] [id number] Unknown [facility] ADV [id number] Unknown [id number] Social History Date Type Detail Facility [facility]: [facility] Start: 1955 Sex Assigned At Male [facility] Clinical Note 03-19-2025 Note Date & Type Note Facility 03-19-2025 Note HNO ID: [id number] Author: TERESA GALLAGHER RN Service: Care Management Author Type: Registered Nurse Type: Care Mgt Progress Note Filed: 03/19/2025 16:30 Note Text: CARE MANAGEMENT DISCHARGE NOTE SERVICE DATE: March 19, 2025 SERVICE TIME: 4:28 PM Plan for discharge this evening after completion of 6:00 PM dose of IV antibiotics. Spouse to Transport [facility] - Address: [address] [place] [address] Able to Accept. Nurse Meek completed bedside education with patient today. Plan for medication and equipment delivery this evening after 9 PM. [facility] - has been updated on plan for discharge home this evening. Admission Date: 03/16/2025 LOS: 3 days Discharge Arrangement Discharge Arrangement: Home with Self Care (Home Infusion Pharmacy) Services Arranged Medical Services: (Home Infusion Pharmacy) [facility] - Address: [address] [place] [address] Transportation Arrangements Transportation Arrangements: Car Date of Trip: 03/19/25 Destination: Home Handoff Communication: Handoff to: Primary Care Physician, Other Caregiver Primary Care Physician Name/Phone: Greer Austin [employer] - Other Caregiver Name/Phone: [facility] - Address: [address] [place] [address] Additional Information: Discharge Information Row Name ED to Hosp-Admission (Current) from 03/16/2025 in [facility] Medical Follow-Up Appointment Provider Name PCP: Greer Austin [employer] - Home Infusion Pharmacy Agency [facility] - Address: [address] [place] [address] Start of Care 03/19/25 Medication Delivery Today after 9:00 PM SIGNATURE: Teresa Gallagher RN PATIENT NAME: Dionisio Orellana DATE: March 19, 2025 TIME: 4:27 PM [facility] Procedure note 03-19-2025 Note Date & Type Note Facility 03-19-2025 Note HNO ID: [id number] Author: TAMREA DONATO RN Service: PICC Team Author Type: Registered Nurse Type: Procedures Filed: 03/19/2025 13:15 Note Text: PICC NURSE INSERTION NOTE DATE OF PROCEDURE: March 19, 2025 TIME OF PROCEDURE: 1045 ORDERING PHYSICIAN: Dr. Clarice Pleitez INFORMED CONSENT: Obtained per hospital policy. INDICATION FOR LINE PLACEMENT: COPAT CONDITION OF LINE PLACEMENT: Sterile PRIMARY PROCEDURALIST: MARY BETH Brown BISQUE FINISHER: Tamera Donato RN PRE-PROCEDURE REVIEW ALLERGIES No Known Allergies Known History of Upper Venous Thrombosis: Yes, + superficial distal L Basilic vein (Cleared Dr. Davin Cole to place RUE) Known History of Permanent Pacemaker or Automated Implanted Cardiac Device: No Previous Breast Surgery of Lymph Node Dissection: No Estimated Glomerular Filtration Rate Date Value Ref Range Status 03/19/2025 97 >=60 mL/min/1.73m? Final Comment: Estimated Glomerular Filtration Rate (eGFR) is calculated using the 2020 CKD-EPI creatinine equation. This equation utilizes serum creatinine, sex, and age as parameters. The creatinine assay has traceable calibration to isotope dilution-mass spectrometry. Refer to KDIGO guidelines for clinical interpretation. In patients with unstable renal function, e.g. those with acute kidney injury, the eGFR may not accurately reflect actual GFR. History of Renal Disease: No Ultrasound Assessment Complete: Yes PROCEDURE NARRATIVE SAFE PRACTICE Hand Hygiene per Hospital Policy: Yes Skin Preparation Unit Dose Applicator Used: Chloraprep (CHG + alcohol), allowed to dry. Procedure Surface Cleansed with Antimicrobial Wipes: Yes Barriers Used by Proceduralist and all Assisting Personnel: Yes UNIVERSAL PROTOCOL / SAFETY CHECKLIST Procedure to be Performed: PICC placement Sign In: A Moment of CARE was completed. Appropriate PPE (Personal Protective Equipment) worn by all providers involved with the procedure. Special equipment not required. Patient/Surrogate Stated/Verified: Patient name, Date of , Relevant allergies, and The intended procedure Time Out: Relevant labs, photos, and/or imaging studies have been reviewed. Intended patient and procedure match the source document(s) (e.g. consent, HANDP, associated studies [imaging, pathology]) match the intended patient and procedure. Consent obtained and matches the intended procedure. Yes. Correct side/site has been marked and visible. Medications required for this procedure are verified. Fire risk assessed and is not applicable. Implants: Correct implant(s) confirmed including size and side. Expiration date(s) reviewed. Sign Out: Specimens not collected. All instruments, equipment, possible retained foreign bodies are accounted for. Yes. The post-procedure plan of care has been communicated to the patient or surrogate and to patient's multidisciplinary team (including bedside nurse for hospitalized patients). CATHETER PLACEMENT Brand: [employer] Lot: [id number] Number of Lumens: 1 Type of PICC: Power Injectable PICC Lumen Size: 4 Korean PLACEMENT TECHNIQUE Lidocaine: Yes, Lidocaine 1% Volume 2 mL Subcutaneous Modified Seldinger Technique Used to Place Line via the Right Basilic Ultrasound Guidance: Yes Number of Attempts at Insertion: 1 Ensured control of guidewire during all aspects of the procedure: Yes Accounted for entire guidewire upon removal: Yes Internal Length: 42 cm External Length: 0 cm Trim Length: 42 cm Mid-Arm Circumference: 31 centimeters Post Insertion Pain Level Related to Procedure: 0 Action Taken to Address Pain: None needed Verified Placement: Tip location system or device indicates the tip is located in the SVC/CAJ. Line was Flushed with 20 mL normal saline Line Secured with: Securement device Sterile Dressing Applied and Dated: Yes Sterile Caps on all Ports Prior to Leaving Procedure Area: Yes SPECIMENS: None COMPLICATIONS: None Patient Education Materials: Placed in chart [facility] Central Line Insertion checklist was utilized during this procedure. QUESTIONS or PROBLEMS: Call [phone] SIGNATURE: Tamera Donato RN PATIENT NAME: Dionisio Orellana DATE: March 19, 2025 TIME: 11:15 AM PAGER/CONTACT PHONE: PATIENT EDUCATION TOPIC: PROCEDURE / SURGERY: Procedure/Surgery: PICC placement PATIENT NAME: Dionisio Orellana PATIENT LOCATION: [id number] READINESS TO LEARN COGNITIVE ABILITY: Alert and oriented MOTIVATION TO LEARN: Interested FAMILY SUPPORT: Unable to assess - Family not present INSTRUCTION PROVIDED TO: Patient PATIENT LEARNS BEST BY: Multiple Methods FACTORS AFFECTING LEARNING: None PHYSICAL LIMITATIONS AFFECTING LEARNING: None LEARNING RESPONSE DIAGNOSIS: ADULT: Osteomyelitis PATIENT/FAMILY RESPONSE: Verbalizes understanding of: PRE-OPERATIVE INSTRUCTIONS-Correct action to take to follow pre-operative instructions POST OPERATIVE INSTRUC (more content not included)... [facility] Progress note 03-19-2025 Note Date & Type Note Facility 03-19-2025 Note HNO ID: [id number] Author: ALEX PLEITEZ MD Service: ? Author Type: Physician Type: Progress Notes Filed: 03/19/2025 16:26 Note Text: [facility] Outpatient Parenteral Antimicrobial Therapy (OPAT) Start Form Patient Info Patient MR[place] [address] Dionisio Rodrigues [address] [place] [id number] 1955 Start Date 03/19/2025 Physician Group [facility] Diagnosis Group Diagnosis Osteoarticular: Osteomyelitis Micro-organism CULTURE NEGATIVE IV Antibiotics Antibiotic Dose Frequency Stop Date Ampicillin-Sulbactam 12 grams daily continuous infusion 04/27/2025 Lab Monitoring Plan Labs Frequency While on CBC/diff Creatinine Liver Function Tests every Wednesday every Wednesday every Wednesday Ampicillin-sulbactam Ampicillin-sulbactam Ampicillin-sulbactam OPAT Pharmacy Consult Yes Cath Care Protocol LINE CARE PER PROTOCOL: Change line dressing weekly and as needed. *Must use medicated disc (biopatch) or tegaderm CHG (chorhexedine gluconate) gel pad over insertion site and cover with transparent dressing* When the patient is on an intermittent IV antibiotic dosing schedule: [facility] method: 1) Administer normal saline 5ml IV to port. 2) Infuse IV antibiotic as ordered. 3) Administer normal saline 5ml IV to port. Labs may be drawn on Wednesday if Wednesday is a holiday. Follow up Provider Follow up date/time Appointment type Alex Pleitez MD 04/12/2025 In-person Provider Monitoring Treatment Course Alex Pleitez MD Address [address] [place] [address], [address], [place] [address] Prescribing Provider's signature - electronically signed by Alex Pleitez MD on 03/19/25 at 4:26 PM [facility] Clinical Note 03-19-2025 Note Date & Type Note Facility 03-19-2025 Note HNO ID: [id number] Author: TERESA GALLAGHER RN Service: Care Management Author Type: Registered Nurse Type: Care Mgt Progress Note Filed: 03/19/2025 14:02 Note Text: CARE MANAGEMENT PROGRESS NOTE SERVICE DATE: 03/19/2025 SERVICE TIME: 10:01 AM LOS: 3 days 03/16/25 Admission Hospital Consults: ID O2: room air Diet: food consistency control IV antibiotics: vancomycin and unasyn Discharge Plan: Home with Home IV antibiotics/PICC line. MARY BETH COBB met with patient at bedside to discuss discharge planning. Patient confirms he is independent with his care. Still working and drives. MARY BETH COBB discuss Ambulatory Infusion Center: [facility]: [address] [place] [address]. Patient confirms he would be agreeable with plan for visits to ambulatory infusion center for line care and lab work. Patient lives with spouse Miesha and confirms he has family that can assist him at home if needed. Discharge Transportation: Spouse: Rossi Delatorre - . Referral sent to [facility] in [facility] Transitions: Able to Accept. Needs Prior to Discharge: To Be Determined, IV Antibiotics (COPAT. PICC Placement. Home Infusion Pharmacy Services.) CM Dept to Follow. 03/19/25 12:02 PM ID Placed Copat. [facility] updated in [facility] Transitions - They note patient will have a weekly out of pocket cost of $276.08 for unasyn. MARY BETH COBB met with patient at bedside to inform patient of his weekly out of pocket cost and the noted stop date of 04/27/25. Patient confirms he is agreeable with out of pocket costs of $276.08 weekly. PICC Line Placement completed. [facility] updated in [facility] Transitions. CM Dept to Follow. 03/19/25 12:43 PM [facility] updated CM that Nurse Eden will come to patients bedside this afternoon for education. Nurse: Katheryn Coppola RN updated. CM Dept to Follow. 03/19/25 2:00 PM Chriss from [facility] called and informed CM that patient will need complete his 6:00 PM dose of IV Antibiotic: Unasyn prior to discharge today. They will plan medication delivery for tonight after 9:00 PM for 12:[address] Caprice Cole and Nurse Katheryn Coppola RN updated on discharge planning. SIGNATURE: Teresa Gallagher RN PATIENT NAME: Dionisio Orellana DATE: March 19, 2025 TIME: 10:01 AM [facility] Progress note 03-18-2025 Note Date & Type Note Facility 03-18-2025 Note HNO ID: [id number] Author: CAPRICE COLE DO Service: Hospital Medicine Author Type: Physician Type: Progress Notes Filed: 03/19/2025 00:29 Note Text: DEPARTMENT OF HOSPITAL MEDICINE PROGRESS NOTE SERVICE DATE: 03/18/2025 SERVICE TIME: 6:15 PM Hospital Medicine/Primary Attending: Caprice Cole DO NIGHT AND WEEKEND COVERAGE: [employer] COVERAGE: Days: [phone], please page attending physician. Nights: [phone], please page [facility] Night coverage pager [phone]. Subjective INTERVAL HPI: Denies any fever, chills, nausea, vomiting, abdominal pain or diarrhea. Denies any chest pain or shortness of breath. Current Facility-Administered Medications Medication Dose Route Frequency vancomycin dosing and monitoring per pharmacy OTHER As Directed NaCl 0.9% iv flush bag 20 mL INTRAVENOUS PRN docusate sodium 100 mg cap(s) (COLACE) 100 mg ORAL BID PRN acetaminophen 650 mg tab(s) (TYLENOL) 650 mg ORAL q 6 H PRN morphine 2 mg injection 2 mg INTRAVENOUS q 4 H PRN oxyCODONE-acetaminophen 5-325 mg 2 tablet (PERCOCET) 2 tablet ORAL q 6 H PRN valsartan 80 mg tab(s) (DIOVAN) 80 mg ORAL DAILY lidocaine (PF) 10 mg/mL (1 %) 10-100 mg injection (XYLOCAINE) 1-10 mL INTRADERMAL DIRECTED PRN nicotine 21 mg/24 hr 1 patch (NICODERM) 1 patch TRANSDERMAL DAILY And nicotine -- REMOVE patch OTHER DAILY And nicotine - verify patch OTHER q 8 H lactobacillus rhamnosus 10 billion cell (CULTURELLE) capsule 1 capsule ORAL DAILY ampicillin-sulbactam iv piggyback 3 g in NaCl 0.9% 100 mL Vial-Bag (UNASYN) 3 g INTRAVENOUS q 6 H lidocaine (PF) 10 mg/mL (1 %) 10-100 mg injection (XYLOCAINE) 1-10 mL INTRADERMAL DIRECTED PRN vancomycin iv piggyback 1.5 g in D5W 300 mL (VANCOCIN) 1.5 g INTRAVENOUS q 12 HR Objective PHYSICAL EXAM: BP 147/72 Pulse 62 Temp (Src) 98.2 (Oral) Resp 16 Ht 5' 10" (1.78m) Wt 180 lb 0.1 oz (81.7kg) SpO2 98% BMI 25.83 kg/(m2). O2 Therapy: Room Air Physical Exam Performed GENERAL: Alert, no distress, cooperative LUNGS: Lungs clear to auscultation, Good diaphragmatic excursion CARDIAC: Normal S1 and S2; no rubs, murmurs, or gallops ABDOMEN: Abdomen soft, non-tender, BS normal, No masses or organomegaly EXTREMITIES: Extremities normal, no deformities, edema, clubbing or skin discoloration. Good capillary refill., No ulcers Lines, Drains, and Airways Line Duration Peripheral 03/18/25 1625 [facility] Left Forearm 20 Gauge <1 day DATA: Diagnostic tests reviewed for today's visit: Most recent labs Most recent imaging Assessment/Plan Problem List Assessment AND Plan Osteomyelitis, jaw acute Hyponatremia Acute osteomyelitis of jaw Hypertension Nicotine use Smoker HOSPITAL COURSE: Dionisio Orellana is a 69 year old male presented with past medical history of HTN presented with dental pain and was seen by a dentist in January and put on antibiotics, 7 day course of amoxicillin. He was then seen by an Maxillofacial Surgery on 02/26/25 and had to remove portion of the bone. His path report came back for acute osteomyelitis and he was referred to outpatient infectious disease. He states he cannot get until next week and he has been having more severe pain and tenderness along the jawline, R-sided. So he came to the emergency room for eval and treatment. ED spoke with the ID they recommended Zosyn and vancomycin and a PICC line placement for long-term antibiotics also the ED staff spoke with dentistry no need for any surgeries at this point he can follow-up as an outpatient. CT of facial bone showed Broad linear lucency along the oral surface of the body and parasymphyseal mandible on the right with areas of cortical break along the anterior and posterior margins, which may reflect sequelae of chronic infectious/inflammatory process. Asymmetric ill-defined induration/obscuration of the adjacent soft tissue planes extending along the inferior margin of the mandible into the submental region. No discrete superimposed sizable subperiosteal abscess or organized collection. Principal Problem: Osteomyelitis, jaw acute -CRP: 0.4. Sed rate: in process. Blood cultures: in process. Lactate:0.7. -follow up with blood cultures -continue with vanco/unasyn per ID Active Problems: Hyponatremia - 134 - IVF x 1 day - labs ordered - BMP -abnormal TSH level. 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 [facility] Progress note 03-17-2025 Note Date & Type Note Facility 03-17-2025 Note HNO ID: [id number] Author: CAPRICE COLE DO Service: Hospital Medicine Author Type: Physician Type: Progress Notes Filed: 03/18/2025 00:40 Note Text: DEPARTMENT OF HOSPITAL MEDICINE PROGRESS NOTE SERVICE DATE: 03/17/2025 SERVICE TIME: 5:04 PM Hospital Medicine/Primary Attending: Caprice Cole DO NIGHT AND WEEKEND COVERAGE: [employer] COVERAGE: Days: [phone], please page attending physician. Nights: [phone], please page [facility] Night coverage pager [phone]. Subjective INTERVAL HPI: Denies any fever, chills, nausea, vomiting, abdominal pain or diarrhea. Denies any chest pain or shortness of breath. Current Facility-Administered Medications Medication Dose Route Frequency vancomycin iv piggyback 1.25 g in D5W 250 mL (VANCOCIN) 0.015 g/kg/dose INTRAVENOUS q 12 HR vancomycin dosing and monitoring per pharmacy OTHER As Directed NaCl 0.9% iv flush bag 20 mL INTRAVENOUS PRN docusate sodium 100 mg cap(s) (COLACE) 100 mg ORAL BID PRN acetaminophen 650 mg tab(s) (TYLENOL) 650 mg ORAL q 6 H PRN morphine 2 mg injection 2 mg INTRAVENOUS q 4 H PRN oxyCODONE-acetaminophen 5-325 mg 2 tablet (PERCOCET) 2 tablet ORAL q 6 H PRN NaCl 0.9% iv infusion 75 mL/hr INTRAVENOUS CONTINUOUS valsartan 80 mg tab(s) (DIOVAN) 80 mg ORAL DAILY lidocaine (PF) 10 mg/mL (1 %) 10-100 mg injection (XYLOCAINE) 1-10 mL INTRADERMAL DIRECTED PRN nicotine 21 mg/24 hr 1 patch (NICODERM) 1 patch TRANSDERMAL DAILY And nicotine -- REMOVE patch OTHER DAILY And nicotine - verify patch OTHER q 8 H lactobacillus rhamnosus 10 billion cell (CULTURELLE) capsule 1 capsule ORAL DAILY ampicillin-sulbactam iv piggyback 3 g in NaCl 0.9% 100 mL Vial-Bag (UNASYN) 3 g INTRAVENOUS q 6 H lidocaine (PF) 10 mg/mL (1 %) 10-100 mg injection (XYLOCAINE) 1-10 mL INTRADERMAL DIRECTED PRN Objective PHYSICAL EXAM: BP 154/80 Pulse 79 Temp (Src) 97.9 (Oral) Resp 16 Ht 5' 10" (1.78m) Wt 180 lb 0.1 oz (81.7kg) SpO2 98% BMI 25.83 kg/(m2). O2 Therapy: Room Air Physical Exam Performed GENERAL: Alert, no distress, cooperative LUNGS: Lungs clear to auscultation, Good diaphragmatic excursion CARDIAC: Normal S1 and S2; no rubs, murmurs, or gallops ABDOMEN: Abdomen soft, non-tender, BS normal, No masses or organomegaly EXTREMITIES: Extremities normal, no deformities, edema, clubbing or skin discoloration. Good capillary refill., No ulcers Lines, Drains, and Airways Line Duration Peripheral 03/16/25 1159 [facility] Short Left Antecubital 20 Gauge 1 day DATA: Diagnostic tests reviewed for today's visit: Most recent labs Most recent imaging Assessment/Plan Problem List Assessment AND Plan Osteomyelitis, jaw acute Hyponatremia Acute osteomyelitis of jaw Hypertension Nicotine use Nicotine use disorder, F17.2 HOSPITAL COURSE: Dionisio Orellana is a 69 year old male presented with past medical history of HTN presented with dental pain and was seen by a dentist in January and put on antibiotics, 7 day course of amoxicillin. He was then seen by an Maxillofacial Surgery on 02/26/25 and had to remove portion of the bone. His path report came back for acute osteomyelitis and he was referred to outpatient infectious disease. He states he cannot get until next week and he has been having more severe pain and tenderness along the jawline, R-sided. So he came to the emergency room for eval and treatment. ED spoke with the ID they recommended Zosyn and vancomycin and a PICC line placement for long-term antibiotics also the ED staff spoke with dentistry no need for any surgeries at this point he can follow-up as an outpatient. CT of facial bone showed Broad linear lucency along the oral surface of the body and parasymphyseal mandible on the right with areas of cortical break along the anterior and posterior margins, which may reflect sequelae of chronic infectious/inflammatory process. Asymmetric ill-defined induration/obscuration of the adjacent soft tissue planes extending along the inferior margin of the mandible into the submental region. No discrete superimposed sizable subperiosteal abscess or organized collection. Principal Problem: Osteomyelitis, jaw acute -CRP: 0.4. Sed rate: in process. Blood cultures: in process. Lactate:0.7. 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 [facility] Clinical Note 03-17-2025 Note Date & Type Note Facility 03-17-2025 Note HNO ID: [id number] Author: EMMA PILLAI LSW Service: Care Management Author Type: Shipping Room Supervisor Type: Care Mgt Initial Assessment Filed: 03/17/2025 13:49 Note Text: CARE MANAGEMENT: ASSESSMENT AND DISCHARGE PLAN SERVICE DATE: March 17, 2025 SERVICE TIME: 1:46 PM PCP: Greer Austin NP (Inactive) Primary Contact: Extended Emergency Contact Information Primary Emergency Contact: Rossi Delatorre Mobile Relation: Spouse Secondary Emergency Contact: Yousif Orellana Mobile Relation: Son Admission Status: Inpatient Insurance Provider: [employer] A[employer] MEDICARE HMO Discharge Planning requested by: Per Department Practice Potential Transition Plans Home, To Be Determined Advance Directives Current Advance Directive: Health Care Power of Environmental Programs Specialist, Living Will In Chart: No Dobby Loom Fixer Attempted to Assist with AD Completion: Yes Action: Education Provided Current Living Arrangements and Support Lives with: Spouse/significant other Type of Residence: Private Residence (House) Does the patient have to climb stairs at home?: No (home came with a ramp) Support: Spouse/significant other How do you manage to accomplish the following: Independent: Dress, Transportation to appointments/community, Bathe/Shower, Ambulation, Medication Management, Meals/Meal Prep, Going to the bathroom Current Services/Equipment Current Post-Acute Service(s): None Discharge Planning Patient Goal(s): General wellness [place] of Choice Explained: [place] of Choice Given: No Reason Not Given: No placements necessary Are you interested in bedside delivery of your medications? No Discharge Planning Participant(s): Patient Patient/Family Comments: Pt plans to d/c home when medically clear Caregiver Assessment: Caregiver is ready, willing and able to meet the patient's needs as recommended by the inter-professional team: No Caregiver needed Transport at Discharge: Transportation Arrangements: Car Needs Prior to Discharge: Needs Prior to Discharge: To Be Determined Post-Acute Discharge Plan: CM reviewed EMR. Diagnosis include: History of HTN and Hyponatremia. Pt admitted due to Acute Osteomyelitis. Consult Infectious Disease. O2=RA. No services. Pt lives with spouse. Works, drives and is independent in ADL's. Pt uses [facility], in [place]. No hx of SNF or homecare. Spouse will slat pickler on d/c. SIGNATURE: FIORDALIZA Zeng, ACM PATIENT NAME: Dionisio Rodrigues Nancy DATE: March 17, 2025 TIME: 1:46 PM [facility] Evaluation note Note Date & Type Note Facility Evaluation note Diagnosis Onset Date GERD (gastroesophageal reflux disease) acute Hyperlipidemia LDL goal <130 acute Hypertension [facility] Work Phone: Summary Purpose Family History No Family History Records Found Relationship Condition Age at Onset Recorded Date/T marsha Not Specified Diabetes mellitus Unknown Cardiac disease Unknown Hypertension Unknown Cerebrovascular accident (CVA) Unknown Advance Directives No Advanced Directives Records FoundNo Advanced Directives Records FoundNo Advanced Directives Records Found Chief Complaint and Reason for Visit Chief Complaint medication refills Reason for Visit GERD (gastroesophage al reflux disease) Hyperlipidemia LDL goal <130 Hypertension Chief Complaint medication refills/L abs Reason for Visit GERD (gastroesophage al reflux disease) Hyperlipidemia LDL goal <130 Hypertension Additional Source Comments (unrecognized sect ion and content) No Status Records FoundNo Status Records FoundNo Status Records Found INFORMATION SOURCE (unrecogn ized section and content) DATE CREATED AUTHOR 12/08/2018 [facility] DATE CREATED AUTHOR AUTHOR'S ORGANIZ ATION 10/15/2024 [facility] DATE CREATED AUTHOR AUTHOR'S ORGANIZ ATION 03/25/2025 [facility] Goals (unrecognized section and content) Goals may be documented in a n alternate sectionGoals may be documented in an alternate section Care Teams (unrecognized sec tion and content) Team Status: Active Member Role Status Dates Greer Austin SURVEYING CREW STAKE RUNNER, SURVEYING CREW STAKE RUNNER-C Primary Care Provider Active Team Status: Inactive Member Role Status Dates Greer Austin SURVEYING CREW STAKE RUNNER, SURVEYING CREW STAKE RUNNER-C Primary Care Pr ovider, Attending Provider, Referring Provider Active Team Status: Inactive Member Role Status Dates Greer Austin SURVEYING CREW STAKE RUNNER, SURVEYING CREW STAKE RUNNER-C Primary Care Provider, Attend ing Provider Active FOR RECORDS PERTAINING TO PATIENTS WHO ARE OR HAVE BEEN ENROLLED IN A CHEMICAL DEPENDENCY/SUBSTANCEABUSE PROGRAM, SOME INFORMATION MAY BE OMITTED. This clinical summary was aggregated from multiple sources. Caution should be exercised in using it in the provision of clinical care. This summary normalizes information from multiple sources, and as a consequence, information in this document may materially change the coding, format and clinical context of patient data. In addition, data may be omitted in some cases. CLINICAL DECISIONS SHOULD BE BASED ON THE PRIMARY CLINICAL RECORDS. [employer] [facility]. provides no warranty or guarantee of the accuracy or completeness of information in this document.
[2025-09-10 22:25] LABS: Hematocrit 42.9 % (40-54); Hemoglobin 14.8 g/dL (13.0-16.5); Immature Granulocytes Count 0.030 X10^3/uL (0.0-0.0); Mean Corp Hgb Conc 34.5 g/dL (32-36); Mean Corpuscular Volume 96.2 fL (80-94); Mean Platelet Vol. 9.8 fl (6.2-12.0); NRBC Flagged by Analyzer 0 % (0-5); Platelet Count 278 K/mm3 (150-450); RBC Distribution Width CV 13.9 % (11.6-14.6); RBC Distribution Width SD 50.0 fl (35.1-43.9); Red Blood Count 4.46 M/mm3 (4.6-6.2); White Blood Count 9.9 K/mm3 (4.4-11.0)
[2025-09-10 23:00] LABS: AST(SGOT) 29 U/L (<=37); Alanine Aminotransfer ALT/SGPT 34 U/L (<=46); Albumin, Serum 4.6 g/dL (3.4-4.8); Alkaline Phosphatase 82 U/L (40-129); Anion Gap 10 (5-15); BUN 11 mg/dL (4-19); BUN/Creat Ratio 12.6 RATIO (10-20); Calcium,Total 9.3 mg/dL (7.6-11.0); Carbon Dioxide 25.1 mmol/L (21.0-32.0); Chloride 101 mmol/L (98-108); Cholesterol 183 mg/dL (<=200); Globulin 2.3 g/dL (2.2-4.2); Glucose 87 mg/dL (70-99); Low Density Lipoprotein Calc. 98 mg/dL; PSA,Total - Annual Screen 1.40 ng/mL (0.02-4.00); Potassium 4.1 mmol/L (3.3-5.1); Triglycerides 114 mg/dL; Very Low Density Lipoprotein 23 mg/dL (5-40); cholesterol:hdl ratio screen 2.84
== END | disposition home or self-care (01) ==
PROVIDERS: PCP Nurse Practitioner; Referring Provider Nurse Practitioner; Visit Provider Nurse Practitioner
DX: K21.9 Gastro-esophageal reflux disease without esophagitis (principal); E78.5 Hyperlipidemia, unspecified; I10 Essential (primary) hypertension; Z12.5 Encounter for screening for malignant neoplasm of prostate
CPT/HCPCS: 80053; 80061; 84153; 85025; G0103